=== PATIENT | male | born 1950 | race Caucasian/White ===

== ENCOUNTER 2025-07-07 08:39 | Inpatient (IN) | payer MEDICARE, MEDICAID ==
[~2025-07-07] VITALS: Ht 175.3 cm; Wt 82.5 kg
--- NOTE | 2025-07-07 10:27 | ED.PDOC ---
History of Present Illness HPI Comments 75-year-old male, with a history of DM, HLD, HTN, and vertigo - on meclizine, is brought in by ambulance from [facility] for chief complaint of dizziness. Per EMS personnel report, patient has significant history of chronic dizziness for over the past 8 years and was brought to the ED under patient's insistence after running out his meclizine medication upon arrival to said aforementioned facility following recent H admission discharge, last night. Patient also expresses this disinterest in staying at SNF. No further pertinent history or events endorsed. Denial of any chest pain, shortness of breath, patient and her speech changes, facial droop, or further associated symptoms. Chief Complaint: Dizziness Time Seen by MD: 09:10 Reviewed Notes: Nurses Notes, Moth Exterminator Notes, Medications, Allergies Allergies: Coded Allergies: NO KNOWN ALLERGIES (Unverified , 07/07/25) Information Source: Patient, Emergency Med Personnel Mode of Arrival: EMS Severity: Moderate Timing: Hours Duration: Since onset Prehospital treatment: 12 Lead EKG, P[place]ure Past Medical History PAST MEDICAL HISTORY: DM, High Lipids, HTN Past Medical History (Other): Vertigo Surgical History: Denies all surgeries Family History Family History: Unknown Social History Smoker: Non-Smoker Alcohol: Denies ETOH Use Drugs: Denies Drug Use Lives In: Home All Other Systems: Reviewed and Negative (Comprehensive review of systems are otherwise negative unless stated in HPI) Physical Exam General Appearance: Moderate Distress HEENT: Normal ENT Inspection, Pharynx Normal, TMs Normal Neck: Full Range of Motion, Non-Tender, Normal, Normal Inspection Respiratory: Chest Non-Tender, Lungs Clear, No Accessory Muscle Use, No Respiratory Distress, Normal Breath Sounds Cardiovascular: No Edema, No JVD, No Murmur, No Gallop, Normal Peripheral Pulses, Regular Rate/Rhythm Breast Exam: Deferred Gastrointestinal: No Organomegaly, Non Tender, No Pulsatile Mass, Normal Bowel Sounds, Soft Genitalia: Deferred Pelvic: Deferred Rectal: Deferred Extremities: No calf tenderness, Normal capillary refill, Normal inspection, Normal range of motion, Non-tender, No pedal edema Musculoskeletal : Apperance: Normal Neurologic: Alert, 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 Was a procedure done?: No EKG EKG : Pulse Rate (adult): 84 [place]: Normal Cardiac Rhythm: NSR, PAC's Block: None Hypertrophy: None ST: Normal Differential Dx Considerations may include: Differential diagnoses considered include but are not limited to cardiac structural disease, arrhythmia, acute coronary syndrome, orthostasis, pulmonary embolism, dissection, seizure, basilar stroke, vertigo, other. X-Ray, Labs, Meds, VS Vital Signs Date Time Temp Pulse Resp B/P (MAP) Pulse Ox O2 Delivery O2 Flow Rate FiO2 07/07/25 10:27 84 07/07/25 08:46 84 07/07/25 08:45 98.8 80 17 160/99 97 98.8 Lab Test 07/07/25 10:43 Range/Units White Blood Count 8.1 4.4-10.8 10^3/uL Red Blood Count 4.54 4.5-5.90 10^6/uL Hemoglobin 14.2 13.5-17.5 g/dL Hematocrit 41.9 41.0-53.0 % Mean Corpuscular Volume 92.3 80.0-100.0 fL Mean Corpuscular Hemoglobin 31.3 28.0-32.0 pg Mean Corpuscular Hemoglobin Concent 33.9 32.0-36.0 g/dL Red Cell Distribution Width 14.3 11.8-14.3 % Platelet Count 296 140-450 10^3/uL Mean Platelet Volume 7.7 6.9-10.8 fL Neutrophils (%) (Auto) 65.4 37.0-80.0 % Lymphocytes (%) (Auto) 16.2 10.0-50.0 % Monocytes (%) (Auto) 16.5 H 0.0-12.0 % Eosinophils (%) (Auto) 0.9 0.0-7.0 % Basophils (%) (Auto) 1.0 0.0-2.0 % Neutrophils # (Auto) 5.3 1.6-8.6 10 ^3/uL Lymphocytes # (Auto) 1.3 0.4-5.4 10 ^3/uL Monocytes # (Auto) 1.3 0-1.3 10 ^3/uL Eosinophils # (Auto) 0.1 0-0.8 10 ^3/uL Basophils # (Auto) 0.1 0-0.2 10 ^3/uL Nucleated Red Blood Cells 0.0 % Sodium Level 132 L 136-145 mmol/L Potassium Level 4.3 3.5-5.1 mmol/L Chloride Level 94 L 98-107 mmol/L Carbon Dioxide Level 25 20-31 mmol/L Anion Gap 13 5-15 Blood Urea Nitrogen 8 L 9-23 mg/dL Creatinine 1.05 0.700-1.30 mg/dL Glomerular Filtration Rate Calc 73 >90 mL/min BUN/Creatinine Ratio 7.6 L 10.0-20.0 Serum Glucose 135 H 74-106 mg/dL Calcium Level 9.9 8.7-10.4 mg/dL Patient alert. Complaining of dizziness. Vitals stable. Answering questions. Explained to the patient. Continue monitoring. Possibly will need placement. Time of 1ST Reevaluation: 09:40 Reevaluation 1ST: Unchanged Patient Education/Counseling: Diagnosis, Treatment, Need For Follow Up Family Education/Counseling: No Family Present SEPSIS Sepsis Screen Date sepsis recognized/suspect: Jul 07, 2025 Time Sepsis recognized/suspect: 844 Recent Procedure: No On Antibiotic Therapy: No Respiratory Rate >20: No Heart Rate >90: No Temp<36 C (96.8 F) or >38.3 C: No SBP <90 or MAP <65 mmHG: No New Acute Mental Status Change: No Is the patient on CPAP, BIPAP,: No Physician Orders Electrocardigram (07/07/25 08:49) Vital Signs Date Time Temp Pulse Resp B/P (MAP) Pulse Ox O2 Delivery O2 Flow Rate FiO2 07/07/25 10:27 84 07/07/25 08:46 84 07/07/25 08:45 98.8 80 17 160/99 97 98.8 Laboratory Tests Test 07/07/25 10:43 White Blood Count 8.1 10^3/uL (4.4-10.8) Departure 1 Departure Time of Disposition: 12:18 Impression: Primary Impression: Uncontrolled diabetes mellitus Qualified Codes: E13.65 - Other specified diabetes mellitus with hyperglyce lilly Additional Impression: Generalized weakness Disposition: ADMITTED INPATIENT Admit to: Med Surg Condition: Guarded Critical Care Note Critical Care Time?: No Stability Stability form required: No Heart Score Heart Score: Heart Score Response (Comments) Value History N/A 0 EKG N/A 0 Age N/A 0 Risk Factors N/A 0 Troponin N/A 0 Total 0 I personally scribed for JAX VARGAS MD ([email or web address]) on 07/07/25 at 10:27. Electronically submitted by Iglesia Gallegos ([email or web address]). JAX VARGAS MD Jul 07, 2025 10:27
[2025-07-07 10:55] LABS: Hematocrit 41.9 % (41.0-53.0); Hemoglobin 14.2 g/dL (13.5-17.5); Mean Corpuscular Hemoglobin 31.3 pg (28.0-32.0); Mean Corpuscular Volume 92.3 fL (80.0-100.0); Nucleated Red Blood Cells % 0.0 %
[2025-07-07 11:08] LABS: Potassium 4.3 mmol/L (3.5-5.1)
[2025-07-07 11:09] LABS: Anion Gap 13 (5-15); Carbon Dioxide 25 mmol/L (20-31)
[2025-07-07 11:10] LABS: Calcium 9.9 mg/dL (8.7-10.4); Chloride 94 mmol/L (98-107); Sodium 132 mmol/L (136-145)
[2025-07-07 11:15] LABS: Glucose 135 mg/dL (74-106)
[2025-07-07 11:24] LABS: BUN/Creatinine Ratio 7.6 (10.0-20.0); Blood Urea Nitrogen 8 mg/dL (9-23)
[2025-07-07] MEDS: ACETAMINOPHEN 325 MG TAB PO ONE (12:47)
--- NOTE | 2025-07-07 12:48 | ECG ---
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
[2025-07-07 13:52] VITALS: PULSE 97; RESP 16; O2SAT 96
[2025-07-07 13:58] LABS: Urine Protein, UAD Negative (Negative)
[2025-07-07] MEDS ORDERED: MORPHINE SULFATE INJ 2 MG/ml SYRG IV PRN (15:45)
[2025-07-07] MEDS ORDERED: ONDANSETRON HCL 4 MG/2 ML VIAL IV PRN (15:45)
[2025-07-07] MEDS ORDERED: DEXTROSE (50%) 50ML SYRG IV PRN (15:45)
[2025-07-07 16:00] VITALS: PULSE 97; RESP 20; O2SAT 95
[2025-07-07 16:07] LABS: Alanine Aminotransferase 15.0 U/L (7-40); Alkaline Phosphatase 99.0 U/L (46-116)
[2025-07-07 16:08] LABS: Albumin 5.2 g/dL (3.2-4.8); Bilirubin, Direct 0.2 mg/dL (<0.3); Bilirubin, Total 0.6 mg/dL (0.2-1.0); Total Protein 8.7 g/dL (5.7-8.2)
[2025-07-07 16:12] LABS: Magnesium 2.1 mg/dL (1.6-2.6)
[2025-07-07 16:13] LABS: Triglycerides 315.0 mg/dL (< 150)
[2025-07-07 16:14] LABS: Cholesterol 193.0 mg/dL (< 200)
[2025-07-07 16:18] LABS: HDL Cholesterol 36.0 mg/dL (40-59)
[2025-07-07 16:47] LABS: INR 1.08 (0.9-1.15); Partial Thromboplastin Time 30.8 SEC (24.5-34.5); Prothrombin Time 11.4 sec (9.3-11.8)
--- NOTE | 2025-07-07 16:47 | DVH ---
CLINICAL HISTORY: Presyncope, with mechanical fall and head trauma TECHNIQUE: Helical scanning was performed of the head from the skull base to the vertex. Multiplanar reconstructions were performed. This exam was performed according to our departmental dose optimizat ion program. Up-to-date CT equipment and radiation dose reduction techniques are utilized as appropri ate. CTDI 55 DLP 971 COMPARISON: Small vessel ischemic change. FINDINGS: There is no evidence for acute intracranial hemorrhage, acute ischemic changes, mass, mass effect, or extra-axial fluid collection. There is no hydrocephalus or midline shift. There is no effacement of the cerebral sulci and basal subarachnoid cisterns. The woodall-white matter differentiation is well alondra ntained. Graph there is mild brain volume loss and chronic The imaged paranasal sinuses are clear. IMPRESSION: NO ACUTE INTRACRANIAL ABNORMALITY SEEN.
--- NOTE | 2025-07-07 16:52 | DVH ---
CLINICAL HISTORY: Presyncope TECHNIQUE: Lewis-scale, Color and Duplex Doppler imaging of the bilateral carotid systems was performe d. COMPARISON: None Findings: Right Carotid system: There is plaque present in the right carotid system. Left Carotid system: There is plaque present in the left carotid system. The following flow velocities were obtained (cm/sec). Right Carotid System: ICA PSV: 95 cm/sec ICA PDV: 70 cm/sec ICA/CCA Ratio: 1 Left Carotid System: ICA PSV: 128 cm/sec ICA PDV: 26 cm/sec ICA/CCA Ratio: 1.3 The right and left common carotid and external carotid arteries are patent. There is antegrade flow i n both vertebral arteries and external carotid arteries. IMPRESSION: LESS THAN 50% RIGHT ICA NARROWING. 50-69% LEFT ICA NARROWING. Estimation of carotid stenosis is based on velocity parameters that correlate the residual internal c arotid diameter with that of the more distal vessel in accordance with the [place] Symptomatic Carotid Endarterectomy Trial (NASCET).
--- NOTE | 2025-07-07 16:55 | DVH ---
Exam: CT CT AB PEL WO CON-NO ORAL OR IV History: H/o bowel obstruction and r/o abd pain Comparison Study: None TECHNIQUE: Multidetector CT of the abdomen AND PELVIS without IV contrast. Axial, coronal and sagitta l multiplanar reformats were obtained from the axial data set by the technologist. Radiation Dose Information: CT Dose: CTDI volume is 15.99 mGy. Dose-length product is 809.89 mGy*cm FINDINGS: Bibasilar atelectasis. Partially visualized heart is normal in size. Small pericardial effusion. Calcified granuloma within the liver spleen. Otherwise, liver, spleen, pancreas and adrenal glands u nremarkable. Cholelithiasis without evidence of acute cholecystitis. 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 No [place] nephrosis or obstructing calculus bilaterally. Mild to moderate nonspecific bilateral perinephr ic fat stranding. Urinary bladder is unremarkable. Prostate measures 3.3 x 4.4 by 3.3 cm. Stomach is unremarkable. Small bowel loops unremarkable. Appendix is unremarkable. Descending colon a nd Sigmoid diverticulosis without diverticulitis. Distal rectal wall thickening which may be from cesilia dequate distention. No evidence of intraperitoneal free air or free fluid. Mild mesenteric fat stranding of the left mida bdomen. No evidence of aortic aneurysm. Heavy atherosclerotic calcification of the aorta and bilateral iliacs . Subcentimeter retroperitoneal nodes. Small fat containing umbilical hernia. Small fat containing bilateral inguinal hernias. Soft tissues unremarkable. No evidence of acute osseous abnormalities. Demineralization with slight increase scler osis of bilateral femoral heads and greater trochanters. Sclerotic focus of the right pelvic bone whi ch may represent a small bone island. IMPRESSION: No evidence of small-bowel obstruction. Colonic diverticulosis without diverticulitis. Distal rectal small wall thickening be from inadequate distention. [id number] nonspecific bilateral perinephric fat stranding. Infectious process can not be comp letely excluded. Additional findings as above.
[2025-07-07] MEDS: InsuLIN REG 1unit/0.01ml Soln (100units/ml) SC SCH (17:42)
[2025-07-07] MEDS: ACCU-CHEK COMFORT CURVE STRIP VI SCH (17:42)
--- NOTE | 2025-07-07 19:02 | DVHHPRES ---
History of Present Illness Resident Creating Document: DEE NAVARRO RESIDENT History of Present Illness This is a 75-year-old male with past medical history of hypertension, hyperlipidemia, GERD presenting to the hospital with persistent dizziness and difficulty walking. He reports these symptoms have been ongoing for very long time. Patient recently discharged from [facility] a few days ago after 2 months stay. Following discharge, he briefly stayed in a motel and then spent 1 day [facility] before came to the hospital due to current symptoms worsening dizziness and inability to walk. He concern about falling and injuring himself and recent fall month ago. Patient noted, prior to his recent hospitalization, he was able to walk but still experienced dizziness and use walker during ambulation. In addition to his primary complain, patient reports having a headache for which he has been taking Tylenol. Denies any e nausea, vomiting, diarrhea, cough, chest pain, leg swelling, SOB or any other pain. Patient also states that he was previously taking meclizine for dizziness but currently does not have any. He mentions seeing a security officer Dr. González sam in [place], [place], a couple of years ago and undergoing stress test and angiogram about 3 years ago. However he is unsure about the result but recalls taking medication for a while afterwards. Past medical history: HLD, HTN, GERD Surgical history: Angiogram few years ago Social history living situation-lives in [place], his girlfriend name Cassidy, no living family members Denies any EtOH, illicit drug use. PCP: Not selected Review of Systems Constitutional: Yes: Weakness, Malaise; No: Fever, Chills, Sweats, Other Eyes: No: Pain, Vision change, Conjunctivae inflammation, Eyelid inflammation, Other, Redness ENT: No: Ear pain, Ear discharge, Nose pain, Nose discharge, Nose congestion, Mouth pain, Mouth swelling, Throat pain, Throat swelling, Other Cardiovascular: No: Chest Pain, Palpitations, Orthopnea, Paroxysmal Noc. Dyspnea, Edema, Lt Headedness, Other Gastrointestinal: No: Nausea, Vomiting, Abdominal Pain, Diarrhea, Constipation, Melena, Hematochezia, Other Genitourinary: No Dysuria, No Frequency, No Incontinence, No Hematuria, No Retention, No Other Musculoskeletal: other (Gait instability), back pain Neurological: Other (Dizziness, vertigo) Allergies: Coded Allergies: NO KNOWN ALLERGIES (Unverified , 07/07/25) Medications Current Medications Medications Dose Ordered Sig/Lonnie Route Start Time Stop Time Status Last Admin Dose Admin Acetaminophen 650 mg Q6HP PRN PO 07/07/25 15:45 Ondansetron HCl 4 mg Q4HP PRN IV 07/07/25 15:45 Morphine Sulfate 2 mg Q4HPRN PRN IV 07/07/25 15:45 Enoxaparin Sodium 40 mg DAILY SC 07/08/25 10:00 Diagnostic Test (Pha) 1 strip ACHS 07/07/25 17:00 07/07/25 17:42 1 STRIP Insulin Human Regular ACHS SC 07/07/25 17:00 Dextrose 50 ml UD PRN IV 07/07/25 15:45 Exam Vital Signs Vital Signs Date Time Temp Pulse Resp B/P (MAP) Pulse Ox O2 Delivery O2 Flow Rate FiO2 07/07/25 16:00 97 20 95 Room Air* 0 21 07/07/25 16:00 97.9 152/89 (110) 97.9 General Appearance: Alert, Oriented X3, Cooperative, mild distress HEENT: Atraumatic, PERRLA, EOMI Respiratory: Clear to auscultation, Normal air movement Cardiovascular: Regular rate, Normal S1, Normal S2 Abdominal: Normal bowel sounds, Soft, No tenderness, No hepatospenomegaly Extremities: No clubbing, No cyanosis, No edema, Normal pulses Skin: No breakdown, No significant lesion Neuro: Normal speech, Normal tone, Other (Gait instability) Labs/Xrays Labs Test 07/07/25 17:20 07/07/25 16:07 07/07/25 16:01 07/07/25 10:43 Range/Units POC Glucose 98 70-106 mg/dl Prothrombin Time 11.4 9.3-11.8 sec Prothrombin Time INR 1.08 0.9-1.15 Activated Partial Thromboplast Time 30.8 24.5-34.5 SEC Troponin I High Sensitivity 14 </=54 ng/L Lactic Acid Level 1.3 0.4-2.0 mmol/L White Blood Count 8.1 4.4-10.8 10^3/uL Red Blood Count 4.54 4.5-5.90 10^6/uL Hemoglobin 14.2 13.5-17.5 g/dL Hematocrit 41.9 41.0-53.0 % Mean Corpuscular Volume 92.3 80.0-100.0 fL Mean Corpuscular Hemoglobin 31.3 28.0-32.0 pg Mean Corpuscular Hemoglobin Concent 33.9 32.0-36.0 g/dL Red Cell Distribution Width 14.3 11.8-14.3 % Platelet Count 296 140-450 10^3/uL Mean Platelet Volume 7.7 6.9-10.8 fL Neutrophils (%) (Auto) 65.4 37.0-80.0 % Lymphocytes (%) (Auto) 16.2 10.0-50.0 % Monocytes (%) (Auto) 16.5 H 0.0-12.0 % Eosinophils (%) (Auto) 0.9 0.0-7.0 % Basophils (%) (Auto) 1.0 0.0-2.0 % Neutrophils # (Auto) 5.3 1.6-8.6 10 ^3/uL Lymphocytes # (Auto) 1.3 0.4-5.4 10 ^3/uL Monocytes # (Auto) 1.3 0-1.3 10 ^3/uL Eosinophils # (Auto) 0.1 0-0.8 10 ^3/uL Basophils # (Auto) 0.1 0-0.2 10 ^3/uL Nucleated Red Blood Cells 0.0 % Sodium Level 132 L 136-145 mmol/L Potassium Level 4.3 3.5-5.1 mmol/L Chloride Level 94 L 98-107 mmol/L Carbon Dioxide Level 25 20-31 mmol/L Anion Gap 13 5-15 Blood Urea Nitrogen 8 L 9-23 mg/dL Creatinine 1.05 0.700-1.30 mg/dL Glomerular Filtration Rate Calc 73 >90 mL/min BUN/Creatinine Ratio 7.6 L 10.0-20.0 Serum Glucose 135 H 74-106 mg/dL Hemoglobin A1c 6.9 H <5.7 % A1C Calcium Level 9.9 8.7-10.4 mg/dL Phosphorus Level 3.4 2.4-5.1 mg/dL Magnesium Level 2.1 1.6-2.6 mg/dL Total Bilirubin 0.6 0.2-1.0 mg/dL Direct Bilirubin 0.2 <0.3 mg/dL Aspartate Amino Transferase (AST) 25 13-40 U/L Alanine Aminotransferase (ALT) 15 7-40 U/L Alkaline Phosphatase 99 46-116 U/L Total Protein 8.7 H 5.7-8.2 g/dL Albumin 5.2 H 3.2-4.8 g/dL Triglycerides Level 315 H < 150 mg/dL Cholesterol Level 193 < 200 mg/dL LDL Cholesterol 118 H < 100 mg/dL HDL Cholesterol 36 L 40-59 mg/dL Vitamin B12 Level 338 211-911 pg/mL Vitamin D 25-Hydroxy 18.8 L 30.0-100 ng/mL Thyroid Stimulating Hormone (TSH) 1.44 0.55-4.78 uIU/mL Test 07/07/25 10:07 Range/Units Urine Color Light-yellow Yellow Urine Clarity Clear Clear Urine pH 7.5 5.0-9.0 Urine Specific [place] 1.013 1.001-1.035 Urine Protein Negative Negative Urine Ketones Negative Negative Urine Blood Negative Negative /uL Urine Nitrite Negative Negative Urine Bilirubin Negative Negative Urine Urobilinogen Normal Negative mg/dL Urine Leukocyte Esterase Negative Negative /uL Urine RBC 1 0 - 3 /hpf Urine Microscopic WBC < 1 0-3 /HPF Urine Squamous Epithelial Cells Few <5 /hpf Urine Bacteria None seen None Seen /hpf Urine Glucose Normal Normal mg/dL SEPSIS Sepsis Screen Date sepsis recognized/suspect: Jul 07, 2025 Time Sepsis recognized/suspect: 1600 Recent Procedure: No On Antibiotic Therapy: No Respiratory Rate >20: No Heart Rate >90: No Temp<36 C (96.8 F) or >38.3 C: No SBP <90 or MAP <65 mmHG: No New Acute Mental Status Change: No Is the patient on CPAP, BIPAP,: No Physician Orders Admit (07/07/25 15:35) Code Status (07/07/25 15:35) Vital Signs .PER UNIT PROTOCOL (07/07/25 15:35) Review Orders With Adm. (07/07/25 15:35) Consistent Carb(Ccho)Diabetes (07/07/25 Dinner) Acetaminophen Tablet (Tylenol Tablet) (07/07/25 15:45) Notify Md Of Changes From Base (07/07/25 15:35) Advance Directive (07/07/25 15:35) Chest Two Views Routine (07/08/25 04:00) Echo 2d Mode Cardiac Dop (07/07/25 15:35) Patient Condition (07/07/25 15:35) Allergies (07/07/25 15:35) Ondansetron Hcl (Zofran) (07/07/25 15:45) Morphine Sulfate Injection (07/07/25 15:45) Enoxaparin Sodium (Lovenox) (07/08/25 10:00) Oxygen By Nasal Cannula (07/07/25 15:35) Stat Ekg For Chest Pain (07/07/25 15:35) Notify Md Of Changes From Base (07/07/25 15:35) Cooking Teacher For 24 Hours (07/07/25 15:35) Emergency Dysrhythmia Protocol (07/07/25 15:35) Rhythm Strips Once Every Shift (07/07/25 15:35) Head Without Contrast (07/07/25 15:35) Carotid Duplx W Color Dop (07/07/25 15:35) Glucose Blood (Accu-Chek Comfort Curve T (07/07/25 17:00) Insulin R (Human) (Insulin R) (07/07/25 17:00) Dextrose 50% Syringe (07/07/25 15:45) Drug Screen (07/07/25 15:41) Electrocardigram (07/07/25 15:41) Complete Blood Count (07/08/25 04:00) Basic Metabolic Panel (07/08/25 04:00) Ct Ab Pel Wo Con-No Oral Or Iv (07/07/25 15:57) Vital Signs Date Time Temp Pulse Resp B/P (MAP) Pulse Ox O2 Delivery O2 Flow Rate FiO2 07/07/25 16:00 97 20 95 Room Air* 0 21 07/07/25 16:00 97.9 89 20 152/89 (110) 95 97.9 07/07/25 13:52 97 16 96 Room Air* 0 21 07/07/25 13:52 98.2 97 16 123/69 (87) 96 98.2 Laboratory Tests Test 07/07/25 10:43 07/07/25 16:01 White Blood Count 8.1 10^3/uL (4.4-10.8) Lactic Acid Level 1.3 mmol/L (0.4-2.0) Medications Medications Dose Ordered Sig/Lonnie Route Start Time Stop Time Status Last Admin Dose Admin Acetaminophen 650 mg ONCE ONCE PO 07/07/25 11:15 07/07/25 11:16 DC 07/07/25 12:47 650 MG Diagnostic Test (Pha) 1 strip ACHS 07/07/25 17:00 07/07/25 17:42 1 STRIP Assessment/Plan Assessment/Plan Presyncope Rule out CVA Dizziness and gait instability Generalized weakness CT head- no acute intracranial abnormality. Carotid Doppler shows < 50% right ICA narrowing and 50-69% left ICA narrowing. EKG: Atrial premature complex, QTC 471 Fall precaution Orthostatic vital negative (Lyin/ 77, sittin, /82 standing 137/90) Encouraged oral fluid intak Hyperlipidemia TG 315, cholesterol 193, LDL 118, LDL 36 atorvastatin Type 2 diabetes mellitus hemoglobin A1c 6.9 sliding scale CHO consistent diet monitor blood sugar Hyponatremia serum sodium level 132, on admission BMP VITAMIN-d DEFICIENCY vitamin-D level 18.8 vitamin-D 18088 units p.o. Q week Diverticulosis Rectal wall thickening CT abdomen shows diverticulosis without diverticulitis and distal rectal small wall thickening. outpatient GI follow-up Pericardial effusion CT abdomen and pelvis shows small pericardial effusion monitor Cholelithiasis without evidence of acute cholecystitis KEVIN due to vasomotor nephropathy creatinine 1.05, unknown baseline, EGFR 73 encouraged oral fluid intake Carbohydrate consistent diet GI prophylaxis pantoprazole DVT prophylaxis Lovenox Goals of care discussion. More than 29 minute spent with patient. Full code status. Case discussed with Dr. Mcnamara. Plan discussed with: Patient, Other (Nurse) My Orders Orders - DEE NAVARRO Procedure Category Date Status Time Ct Ab Pel Wo Con-No CT 07/07/25 Resulted Oral Or Iv 15:57 Date of Service: Jul 07, 2025 Billing Provider: KEVEN MCNAMARA MD Common Visit Codes: 95757-JOAHTDU INP/OBS CARE (HIGH) Secondary Visit Codes: 41708-EWYLJVOI CARE PLAN 30 MINUTES DEE NAVARRO Jul 07, 2025 19:02 BIENVENIDO CONKLIN Jul 13, 2025 11:08 KEVEN MCNAMARA MD Jul 14, 2025 19:27
[2025-07-07 21:02] VITALS: BP 135/83; PULSE 78; RESP 18; TEMP 98; O2SAT 95; O2SAT 98
[2025-07-07 21:31] VITALS: BP 135/83; PULSE 78; RESP 17; TEMP 98; O2SAT 95
[2025-07-07] MEDS: ATORVASTATIN 20 MG TAB PO ONE (23:09)
[2025-07-07] MEDS: ACETAMINOPHEN 325 MG TAB PO PRN (23:09)
[2025-07-08] VITALS (9 sets, daily range): BP systolic 114–140; BP diastolic 62–93; PULSE 62–80; RESP 16–18; TEMP 98–98.6; O2SAT 94–98
[2025-07-08] MEDS: PANTOPRAZOLE 40 MG TAB PO SCH (05:56)
[2025-07-08] MEDS: MECLIZINE HCL 25 MG TAB PO ONE ×2 (05:56→14:59)
--- NOTE | 2025-07-08 06:03 | DVH ---
CHEST RADIOGRAPH Indication: Presyncope Technique: 1 view Comparison: Previous studies CT abdomen/pelvis FINDINGS: Lines and Tubes: External leads. Lungs/Pleura: Low lung volumes with basilar opacities most consistent with atelectasis. No evidence of acute consolidation or pleural abnormality Cardiomediastinum: Normal heart size. Right paratracheal calcification. Other: No acute osseous abnormality. IMPRESSION: 1. No acute cardiopulmonary abnormality.
[2025-07-08 07:20] LABS: Anion Gap 9 (5-15); Carbon Dioxide 25 mmol/L (20-31); Chloride 98 mmol/L (98-107); Potassium 4.0 mmol/L (3.5-5.1); Sodium 132 mmol/L (136-145)
[2025-07-08 07:21] LABS: Calcium 9.1 mg/dL (8.7-10.4)
[2025-07-08 07:26] LABS: BUN/Creatinine Ratio 11.7 (10.0-20.0); Blood Urea Nitrogen 12 mg/dL (9-23)
[2025-07-08 07:29] LABS: Hematocrit 35.3 % (41.0-53.0); Hemoglobin 12.7 g/dL (13.5-17.5); Mean Corpuscular Hemoglobin 32.4 pg (28.0-32.0); Mean Corpuscular Volume 90.5 fL (80.0-100.0)
[2025-07-08 07:30] LABS: Glucose 127 mg/dL (74-106)
[2025-07-08 08:31] LABS: RBC Morphology Normal; Total Cells Counted 100.0 (100)
[2025-07-08] MEDS: ENOXAPARIN SOD 40 MG/0.4 ML SYRINGE SC SCH (09:16)
--- NOTE | 2025-07-08 09:48 | DVHPNRES ---
Progress Note Date Seen: Jul 08, 2025 Resident Creating Document: DEE NAVARRO RESIDENT Medical Necessity Reason Pt with a Central, PICC or Fol: No Subjective Review of Systems This is a 75-year-old male with past medical history of hypertension, hyperlipidemia, GERD presenting to the hospital with persistent dizziness and difficulty walking. He reports these symptoms have been ongoing for very long time. Patient recently discharged from [facility] a few days ago after 2 months stay. Following discharge, he briefly stayed in a motel and then spent 1 day [facility] before came to the hospital due to current symptoms worsening dizziness and inability to walk. He concern about falling and injuring himself and recent fall month ago. Patient noted, prior to his recent hospitalization, he was able to walk but still experienced dizziness and use walker during ambulation. In addition to his primary complain, patient reports having a headache for which he has been taking Tylenol. Denies any e nausea, vomiting, diarrhea, cough, chest pain, leg swelling, SOB or any other pain. Patient also states that he was previously taking meclizine for dizziness but currently does not have any. 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 González sam in [place], [place], a couple of years ago and undergoing stress test and angiogram about 3 years ago. However he is unsure about the result but recalls taking medication for a while afterwards. Past medical history: HLD, HTN, GERD Surgical history: Angiogram few years ago Social history living situation-lives in [place], his girlfriend name Cassidy, no living family members Denies any EtOH, illicit drug use. PCP: González Monique MD Patient seen and evaluated in bedside today. Currently denies any acute symptoms. Echo pending. No acute event overnight. Called girlfriend Cassidy ([phone]) but unable to reach. Patient wants to go back "[place]" where he lives, when medically stable for discharge. Objective vital signs Vital Sign Date Time Temp Pulse Resp B/P (MAP) Pulse Ox O2 Delivery O2 Flow Rate FiO2 07/08/25 06:46 98.2 80 18 122/80 (94) 97 98.2 07/07/25 21:02 Room Air* 0 21 Total Intake and Output 07/07/25 07/07/25 07/08/25 15:00 23:00 07:00 Intake Total 150 ml Balance 150 ml medications Current Medications Medications Dose Ordered Sig/Lonnie Route Start Time Stop Time Status Last Admin Dose Admin Acetaminophen 650 mg Q6HP PRN PO 07/07/25 15:45 07/07/25 23:09 650 MG Ondansetron HCl 4 mg Q4HP PRN IV 07/07/25 15:45 Morphine Sulfate 2 mg Q4HPRN PRN IV 07/07/25 15:45 Enoxaparin Sodium 40 mg DAILY SC 07/08/25 10:00 Diagnostic Test (Pha) 1 strip ACHS 07/07/25 17:00 07/08/25 05:57 1 STRIP Insulin Human Regular ACHS SC 07/07/25 17:00 07/07/25 22:23 2 UNITS Dextrose 50 ml UD PRN IV 07/07/25 15:45 Ergocalciferol 50,000 unit Q7D PO 07/07/25 22:30 Pantoprazole Sodium 40 mg DAILY@0600 PO 07/08/25 06:00 07/08/25 05:56 40 MG Atorvastatin Calcium 20 mg HS PO 07/08/25 22:00 Examination General Appearance: Alert, Oriented X3, Cooperative, mild distress HEENT: Atraumatic, PERRLA, EOMI Respiratory: Clear to auscultation, Normal air movement Cardiovascular: Regular rate, Normal S1, Normal S2 Abdominal: Normal bowel sounds, Soft, No tenderness, No hepatospenomegaly Extremities: No clubbing, No cyanosis, No edema, Normal pulses Skin: No breakdown, No significant lesion Neuro: Normal speech, Normal tone, Other (Gait instability) laboratory and microbiology Laboratory Tests 07/08/25 06:45 Test 07/08/25 06:45 Range/Units Serum Glucose 127 H 74-106 mg/dL Problem List/Assessment/Plan Problem List/Assessment/Plan Presyncope Ruled out CVA Dizziness and gait instability Generalized weakness CT head- no acute intracranial abnormality. Carotid Doppler shows < 50% right ICA narrowing and 50-69% left ICA narrowing. EKG: Atrial premature complex, QTC 471 Trop 14 Fall precaution Orthostatic vital negative (Lyin/ 77, sittin, /82 standing 137/90) Encouraged oral fluid intak Hyperlipidemia TG 315, cholesterol 193, LDL 118, LDL 36 atorvastatin Type 2 diabetes mellitus hemoglobin A1c 6.9 Insulin sliding scale CHO consistent diet monitor blood sugar Hyponatremia serum sodium level 132, on admission BMP VITAMIN-d DEFICIENCY vitamin-D level 18.8 vitamin-D 77666 units p.o. Q week Diverticulosis Rectal wall thickening CT abdomen shows diverticulosis without diverticulitis and distal rectal small wall thickening. outpatient GI follow-up Normocytic normochromic anemia Hemoglobin level 12.6, HCT 35.3 No signs symptoms of active bleeding Pericardial effusion CT abdomen and pelvis shows small pericardial effusion monitor Cholelithiasis without evidence of acute cholecystitis KEVIN due to vasomotor nephropathy creatinine 1.05, unknown baseline, EGFR 73 encouraged oral fluid intake Carbohydrate consistent diet GI prophylaxis pantoprazole DVT prophylaxis Lovenox Goals of care discussion. More than 19minute spent with patient. Full code status. Case discussed with Dr. Mcnamara. Plan discussed with: Patient, Other (Nurse) My Orders My Orders Orders - DEE NAVARRO Procedure Category Date Status Time Ct Ab Pel Wo Con-No CT 07/07/25 Resulted Oral Or Iv 15:57 Ergocalciferol PHA 07/07/25 In Process (Vitamin D 50,000 22:30 Pantoprazole Tablet PHA 07/08/25 In Process (Protonix Tablet) 06:00 Atorvastatin (Lipitor) PHA 07/08/25 In Process 22:00 Date of Service: Jul 08, 2025 Billing Provider: KEVEN MCNAMARA MD Common Visit Codes: [id number] INP/OBS CARE(HIGH) DEE NAVARRO Jul 08, 2025 09:48 BIENVENIDO CONKLIN Jul 13, 2025 11:09 KEVEN MCNAMARA MD Jul 14, 2025 19:27
[2025-07-08] MEDS: ATORVASTATIN 20 MG TAB PO SCH (21:45)
[2025-07-08] MEDS: MECLIZINE HCL 25 MG TAB PO SCH (21:45)
[2025-07-08] MEDS: ERGOCALCIFEROL 50,000 UNIT(1.25MG) CAP PO SCH (21:45)
[2025-07-09] VITALS (7 sets, daily range): BP systolic 120–137; BP diastolic 66–90; PULSE 56–83; RESP 16–18; TEMP 97.3–97.8; O2SAT 95–98
--- NOTE | 2025-07-09 00:41 | DVHSR ---
APPROVED REPORT EXAM: Two-dimensional and M-mode echocardiogram with Doppler and color Doppler. Blood Pressure: 122/80 mmHg INDICATION Presyncope RISK FACTORS Height: 69, Weight: 175 DIMENSIONS LVDd4.4 (3.8-5.7cm)LA (2D)4.4 (1.9-4.0cm)Aortic Root3.9 (2.0-3.7cm) LVDs3.0 (2.5-4.0cm)LA (MM) (1.9-4.0cm)Aortic Cusp Exc1.9 (1.5-2.0cm) EF (%) 61.0 (55-70%)Rt. Atrium (1.9-4.0cm)Asc. Aorta cm Mitral Valve MitralMitral Stenosis E wave0.72m/sMV Mean GR.mmHg A wave0.98m/sMV Peak GR.mmHg E/A ratio0.72D MVAcm2 DECEL [id number] 1/2 Timems Aortic Valve Aortic ValveAortic Stenosis V11.07m/Nellie Mean GR.5mmHg V21.60m/Nellie Peak GR.10mmHg LVOT Diameter2.0 (1.8-2.4cm)Doppler AVA2.10cm2 Pulmonic Valve V20.96m/s Tricuspid Valve TR Velocity2.43m/s [id number] Other Information Technically limited study due to body habitus and patient position. Conclusion LV EF IS 65% AORTIC LEAFLETS ARE CALCIFIED MITRAL ANNULAR CALCIFICATION SLIGHTLY DILATED LA NO EFFUSION
[2025-07-09 07:10] LABS: Chloride 100 mmol/L (98-107); Potassium 4.0 mmol/L (3.5-5.1)
[2025-07-09 07:11] LABS: Anion Gap 9 (5-15); Carbon Dioxide 25 mmol/L (20-31)
[2025-07-09 07:12] LABS: Calcium 9.2 mg/dL (8.7-10.4); Hematocrit 36.2 % (41.0-53.0); Hemoglobin 12.4 g/dL (13.5-17.5); Mean Corpuscular Hemoglobin 31.3 pg (28.0-32.0); Mean Corpuscular Volume 90.9 fL (80.0-100.0)
[2025-07-09 07:13] LABS: Sodium 134 mmol/L (136-145)
[2025-07-09 07:16] LABS: BUN/Creatinine Ratio 10.3 (10.0-20.0); Blood Urea Nitrogen 10 mg/dL (9-23)
[2025-07-09 07:18] LABS: Glucose 122 mg/dL (74-106)
[2025-07-09 07:53] LABS: Total Cells Counted 100.0 (100)
--- NOTE | 2025-07-09 14:58 | DVHDSRES ---
Discharge Summary Date of Admission Resident Creating Document: DEE NAVARRO RESIDENT Jul 07, 2025 at 15:35 Date of Discharge: Jul 09, 2025 Labs/Diagnostic Data: Laboratory Results Test 07/09/25 06:01 07/09/25 06:00 07/08/25 06:45 07/07/25 16:07 White Blood Count 5.3 10^3/uL (4.4-10.8) Red Blood Count 3.98 10^6/uL (4.5-5.90) Hemoglobin 12.4 g/dL (13.5-17.5) Hematocrit 36.2 % (41.0-53.0) Mean Corpuscular Volume 90.9 fL (80.0-100.0) Mean Corpuscular Hemoglobin 31.3 pg (28.0-32.0) Mean Corpuscular Hemoglobin Concent 34.4 g/dL (32.0-36.0) Red Cell Distribution Width 14.7 % (11.8-14.3) Platelet Count 248 10^3/uL (140-450) Mean Platelet Volume 8.0 fL (6.9-10.8) Neutrophils (%) (Auto) % (37.0-80.0) Lymphocytes (%) (Auto) % (10.0-50.0) Monocytes (%) (Auto) % (0.0-12.0) Basophils (%) (Auto) % (0.0-2.0) Neutrophils # (Auto) 10 ^3/uL (1.6-8.6) Lymphocytes # (Auto) 10 ^3/uL (0.4-5.4) Monocytes # (Auto) 10 ^3/uL (0-1.3) Differential Total Cells Counted 100.0 (100) Neutrophils % (Manual) 48 (37.0-80.0) Band Neutrophils % (Manual) 2 Lymphocytes % (Manual) 36 (10.0-50.0) Monocytes % (Manual) 7 (0-12) Eosinophils % (Manual) 6 (0-7) Basophils % (Manual) 0 (0.0-2.0) Metamyelocytes % (manual) 1 Myelocytes % (Manual) 0 Promyelocytes % (Manual) 0 Blast Cells % (Manual) 0 Reactive Lymphocytes 0 Platelet Estimate Adequate Sodium Level 134 mmol/L (136-145) Potassium Level 4.0 mmol/L (3.5-5.1) Chloride Level 100 mmol/L (98-107) Carbon Dioxide Level 25 mmol/L (20-31) Anion Gap 9 (5-15) Blood Urea Nitrogen 10 mg/dL (9-23) Creatinine 0.97 mg/dL (0.700-1.30) Glomerular Filtration Rate Calc 80 mL/min (>90) BUN/Creatinine Ratio 10.3 (10.0-20.0) Serum Glucose 122 mg/dL (74-106) Calcium Level 9.2 mg/dL (8.7-10.4) POC Glucose 137 mg/dl (70-106) Red Blood Cell Morphology Normal Prothrombin Time 11.4 sec (9.3-11.8) Prothrombin Time INR 1.08 (0.9-1.15) Activated Partial Thromboplast Time 30.8 SEC (24.5-34.5) Troponin I High Sensitivity 14 ng/L (</=54) Test 07/07/25 16:01 07/07/25 10:43 07/07/25 10:07 Lactic Acid Level 1.3 mmol/L (0.4-2.0) Eosinophils (%) (Auto) 0.9 % (0.0-7.0) Eosinophils # (Auto) 0.1 10 ^3/uL (0-0.8) Basophils # (Auto) 0.1 10 ^3/uL (0-0.2) Nucleated Red Blood Cells 0.0 % Hemoglobin A1c 6.9 % A1C (<5.7) Phosphorus Level 3.4 mg/dL (2.4-5.1) Magnesium Level 2.1 mg/dL (1.6-2.6) Total Bilirubin 0.6 mg/dL (0.2-1.0) Direct Bilirubin 0.2 mg/dL (<0.3) Aspartate Amino Transferase (AST) 25 U/L (13-40) Alanine Aminotransferase (ALT) 15 U/L (7-40) Alkaline Phosphatase 99 U/L (46-116) Total Protein 8.7 g/dL (5.7-8.2) Albumin 5.2 g/dL (3.2-4.8) Triglycerides Level 315 mg/dL (< 150) Cholesterol Level 193 mg/dL (< 200) LDL Cholesterol 118 mg/dL (< 100) HDL Cholesterol 36 mg/dL (40-59) Vitamin B12 Level 338 pg/mL (211-911) Vitamin D 25-Hydroxy 18.8 ng/mL (30.0-100) Thyroid Stimulating Hormone (TSH) 1.44 uIU/mL (0.55-4.78) Urine Color Light-yellow (Yellow) Urine Clarity Clear (Clear) Urine pH 7.5 (5.0-9.0) Urine Specific [place] 1.013 (1.001-1.035) Urine Protein Negative (Negative) Urine Ketones Negative (Negative) Urine Blood Negative /uL (Negative) Urine Nitrite Negative (Negative) Urine Bilirubin Negative (Negative) Urine Urobilinogen Normal mg/dL (Negative) Urine Leukocyte Esterase Negative /uL (Negative) Urine RBC 1 /hpf (0 - 3) Urine Microscopic WBC < 1 /HPF (0-3) Urine Squamous Epithelial Cells Few /hpf (<5) Urine Bacteria None seen /hpf (None Seen) Urine Glucose Normal mg/dL (Normal) Other Laboratory Tests 07/09/25 06:01 Brief Hx & Hospital Course: This is a 75-year-old male with past medical history of hypertension, hyperlipidemia, GERD presenting to the hospital with persistent dizziness and difficulty walking. He reports these symptoms have been ongoing for very long time. Patient recently discharged from [facility] a few days ago after 2 months stay. Following discharge, he briefly stayed in a motel and then spent 1 day [facility] [facility] before came to the hospital due to current symptoms worsening dizziness and inability to walk. He concern about falling and injuring himself and recent fall month ago. Patient noted, prior to his recent hospitalization, he was able to walk but still experienced dizziness and use walker during ambulation. In addition to his primary complain, patient reports having a headache for which he has been taking Tylenol. Denies any e nausea, vomiting, diarrhea, cough, chest pain, leg swelling, SOB or any other pain. Patient also states that he was previously taking meclizine for dizziness but currently does not have any. 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 González sam in [place], [place], a couple of years ago and undergoing stress test and angiogram about 3 years ago. However he is unsure about the result but recalls taking medication for a while afterwards. Past medical history: HLD, HTN, GERD Surgical history: Angiogram few years ago Social history living situation-lives in [place], his girlfriend name Cassidy, no living family members Denies any EtOH, illicit drug use. PCP: González Monique MD Hospital course: patient admitted due to presyncope associated with generalized weakness. CT head- no acute intracranial abnormality. Carotid Doppler shows < 50% right ICA narrowing and 50-69% left ICA narrowing, started aspirin and atorvastatin with his current medication. CT abdomen and pelvis shows colonic diverticulosis without diverticulitis, distal rectal small wall thickening, small fat containing umbilical hernia. X-ray chest shows no acute cardiopulmonary disease. patient treated conservatively and his symptoms significantly improved. during hospital stay, patient treated both acute and chronic medical conditions. Echocardiogram on 07/09/2025 shows left ventricular EF 65%, mitral annular calcification and slightly dilated left atrium. Patient currently denies any SOB, cough, headache, chest pain, abdominal pain, dysuria or any other acute distress. Patient is hemodynamically stable for discharge. The patient has received maximum benefits from inpatient treatment. Time was given to answer patient/ parents questions and concerns in Layman terms. patient verbalized understanding and agree with treatment and follow-up. Patient was recommended to return to the ED if she experiences any worsening symptoms such as, but not limited to current symptoms. Continue current home medication. follow-up with discharge Clinic within 2 weeks on Saturday morning and follow up with PCP and outpatient Cardiology within 4-6 weeks after discharge . Patient educated and advised to resume home medication. Physical examination Constitutional: No: Fever, Chills, Sweats, Weakness, Malaise Eyes: No: Pain, Vision change, Conjunctivae inflammation, Eyelid inflammation ENT: No: Ear pain, Ear discharge, Nose pain, Nose discharge, Nose congestion, Mouth pain, Mouth swelling, Throat pain, Throat swelling Respiratory: Shortness of breath; No: Cough, Dry, SOB with excertion, Wheezing, Hemoptysis, Pleuritic Pain, Sputum, Wheezing Cardiovascular: No: Chest Pain, Palpitations, Orthopnea, Paroxysmal Noc. Dyspnea, Edema, Lt Headedness Gastrointestinal: No: Nausea, Vomiting, Abdominal Pain, Diarrhea, Constipation, Melena, Hematochezia Genitourinary: No Dysuria, No Frequency, No Incontinence, No Hematuria, No Retention Musculoskeletal: No: other, neck pain, shoulder pain, arm pain, back pain, hand pain, leg pain, foot pain Skin: No: Rash, Lesions, Jaundice, Bruising Neurological: No: Weakness, Numbness, Incoordination, Change in speech, Confusion, Seizures Case discussed with patient, Dr. Mcnamara, nurse. Operations or Procedures ORDERING PHYSICIAN: BIENVENIDO CONKLIN RESIDENT PROCEDURE(s): CXR1 - CHEST XRAY 1 VIEW REASON: Presyncope ORDER NUMBER(s): [id number], ACCESSION NUMBER(s): [id number] CHEST RADIOGRAPH Indication: Presyncope Technique: 1 view Comparison: Previous studies CT abdomen/pelvis FINDINGS: Lines and Tubes: External leads. Lungs/Pleura: Low lung volumes with basilar opacities most consistent with atelectasis. No evidence of acute consolidation or pleural abnormality Cardiomediastinum: Normal heart size. Right paratracheal calcification. Other: No acute osseous abnormality. IMPRESSION: 1. No acute cardiopulmonary abnormality. ATED BY: CHATO WALLIS MD DICTATED DATE/TIME: 07/08/25 0600 ORDERING PHYSICIAN: DEE NAVARRO PROCEDURE(s): ABPL - CT AB PEL WO CON-NO ORAL OR IV REASON: H/o bowel obstruction and r/o abd pain ORDER NUMBER(s): [id number], ACCESSION NUMBER(s): [id number] Exam: CT CT AB PEL WO CON-NO ORAL OR IV History: H/o bowel obstruction and r/o abd pain Comparison Study: None TECHNIQUE: Multidetector CT of the abdomen AND PELVIS without IV contrast. Axial, coronal and sagittal multiplanar reformats were obtained from the axial data set by the technologist. Radiation Dose Information: CT Dose: CTDI volume is 15.99 mGy. Dose-length product is 809.89 mGy*cm FINDINGS: Bibasilar atelectasis. Partially visualized heart is normal in size. Small pericardial effusion. Calcified granuloma within the liver spleen. Otherwise, liver, spleen, pancreas and adrenal glands unremarkable. Cholelithiasis without evidence of acute cholecystitis. 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 No [place] nephrosis or obstructing calculus bilaterally. Mild to moderate nonspecific bilateral perinephric fat stranding. Urinary bladder is unremarkable. Prostate measures 3.3 x 4.4 by 3.3 cm. Stomach is unremarkable. Small bowel loops unremarkable. Appendix is unremarkable. Descending colon and Sigmoid diverticulosis without diverticulitis. Distal rectal wall thickening which may be from inadequate distention. No evidence of intraperitoneal free air or free fluid. Mild mesenteric fat stranding of the left midabdomen. No evidence of aortic aneurysm. Heavy atherosclerotic calcification of the aorta and bilateral iliacs. Subcentimeter retroperitoneal nodes. Small fat containing umbilical hernia. Small fat containing bilateral inguinal hernias. Soft tissues unremarkable. No evidence of acute osseous abnormalities. Demineralization with slight increase sclerosis of bilateral femoral heads and greater trochanters. Sclerotic focus of the right pelvic bone which may represent a small bone island. IMPRESSION: No evidence of small-bowel obstruction. Colonic diverticulosis without diverticulitis. Distal rectal small wall thickening be from inadequate distention. [id number] nonspecific bilateral perinephric fat stranding. Infectious process can not be completely excluded. Additional findings as above. ATED BY: STACY SOUZA DO DICTATED DATE/TIME: 07/07/25 6732 ORDERING PHYSICIAN: BIENVENIDO CONKLIN RESIDENT PROCEDURE(s): HWOCT - HEAD WITHOUT CONTRAST REASON: Presyncope, with mechanical fall and head trauma ORDER NUMBER(s): [id number], ACCESSION NUMBER(s): [id number] CLINICAL HISTORY: Presyncope, with mechanical fall and head trauma TECHNIQUE: Helical scanning was performed of the head from the skull base to the vertex. Multiplanar reconstructions were performed. This exam was performed according to our departmental dose optimization program. Up-to-date CT equipment and radiation dose reduction techniques are utilized as appropriate. CTDI 55 DLP 971 COMPARISON: Small vessel ischemic change. FINDINGS: There is no evidence for acute intracranial hemorrhage, acute ischemic changes, mass, mass effect, or extra-axial fluid collection. There is no hydrocephalus or midline shift. There is no effacement of the cerebral sulci and basal subarachnoid cisterns. The lewis-white matter differentiation is well maintained. Graph there is mild brain volume loss and chronic The imaged paranasal sinuses are clear. IMPRESSION: NO ACUTE INTRACRANIAL ABNORMALITY SEEN. ATED BY: THOMAS CLARK MD DICTATED DATE/TIME: 07/07/25 1645 ORDERING PHYSICIAN: BIENVENIDO CONKLIN RESIDENT PROCEDURE(s): CARCL - CAROTID DUPLX W COLOR DOP REASON: Presyncope ORDER NUMBER(s): [id number], ACCESSION NUMBER(s): [id number] CLINICAL HISTORY: Presyncope TECHNIQUE: Lewis-scale, Color and Duplex Doppler imaging of the bilateral carotid systems was performed. COMPARISON: None Findings: Right Carotid system: There is plaque present in the right carotid system. Left Carotid system: There is plaque present in the left carotid system. The following flow velocities were obtained (cm/sec). Right Carotid System: ICA PSV: 95 cm/sec ICA PDV: 70 cm/sec ICA/CCA Ratio: 1 Left Carotid System: ICA PSV: 128 cm/sec ICA PDV: 26 cm/sec ICA/CCA Ratio: 1.3 The right and left common carotid and external carotid arteries are patent. There is antegrade flow in both vertebral arteries and external carotid arteries. IMPRESSION: LESS THAN 50% RIGHT ICA NARROWING. 50-69% LEFT ICA NARROWING. Estimation of carotid stenosis is based on velocity parameters that correlate the residual internal carotid diameter with that of the more distal vessel in accordance with the [place] Symptomatic Carotid Endarterectomy Trial (NASCET). ATED BY: THOMAS CLARK MD DICTATED DATE/TIME: 07/07/25 1650 Condition at Discharge: Stable Final Diagnosis/Problems List Presyncope Ruled out CVA Questionable chronic mesenteric ischemia Non-significant bilateral carotid stenosis Hyperlipidemia Type 2 diabetes mellitus Hyponatremia VITAMIN-D DEFICIENCY Diverticulosis Normocytic normochromic anemia Pericardial effusion Cholelithiasis without evidence of acute cholecystitis KEVIN due to vasomotor nephropathy Discharge Disposition: Home Discharge Instruct/Medications Diet: Cardiac 2g Na,low cholest Diet comment: Continue mechanical soft diet Activity: No Restrictions, As Tolerated Follow Up/Referral: PCP Saturday morning outpatient clinic within 2 weeks after Cardiology follow-up outpatient within 4-6 weeks after discharge Scheduled Atorvastatin Calcium (Atorvastatin Calcium), 1 TAB PO HS Ergocalciferol (Vitamin D (Ergocalciferol), 50,000 UNIT PO QWEEKLY Scheduled PRN Acetaminophen (Tylenol), 650 MG PO Q6HPRN PRN Meclizine Hcl (Meclizine Hcl), 12.5 MG PO [id number] PRN Discharge Statement: "Patient was advised to return to the ER or call 911 if any headaches, dizziness, shortness of breath, chest pain, abdominal pain, bleeding, fevers, or worsening of medical condition. Patient was counseled about treatment plan, medications, possible side effects, patientverbalized understanding. All questions were answered to the best of my ability. This discharge took greater then 30 minutes in planning, reviewing documentation, counseling the patient, and discussing with other team members." ASSESSMENT ASSESSMENT Assessment Presyncope and generalized weakness Date of Service: Jul 09, 2025 Billing Provider: KEVEN MCNAMARA MD Common Visit Codes: [id number]/OBS DISCH DAY >30min DEE NAVARRO RESIDENT Jul 09, 2025 14:58 BIENVENIDO CONKLIN RESIDENT Jul 13, 2025 11:12 KEVEN MCNAMARA MD Jul 14, 2025 20:22
[2025-07-09] MEDS ORDERED: ATOR20TA50 PO (16:44)
[2025-07-09] MEDS ORDERED: ASPI-325 PO (16:44)
[2025-07-09] MEDS ORDERED: MECL-90 PO (16:44)
[2025-07-09] MEDS ORDERED: ERGO1CAP23 PO (16:44)
[2025-07-09] MEDS ORDERED: ACET-1882 PO (16:44)
[2025-07-10 01:00] VITALS: BP 148/71; PULSE 61; RESP 18; TEMP 97.2; O2SAT 98
[2025-07-10 08:00] VITALS: PULSE 59; RESP 14; O2SAT 94
[2025-07-10 09:00] VITALS: BP 143/78; PULSE 71; RESP 14; TEMP 97.6; O2SAT 97
[2025-07-10] MEDS: HYDROcodone-ACET 5/325MG TAB PO ONE (10:12)
[2025-07-10 12:00] VITALS: BP 143/78; PULSE 71; RESP 14; TEMP 97.6; O2SAT 97
[2025-07-10] MEDS ORDERED: MECL-90 PO (12:36)
[2025-07-10] MEDS ORDERED: ACE650RS PO (12:36)
[2025-07-10] MEDS ORDERED: ERGO500086 PO (12:36)
[2025-07-10] MEDS ORDERED: ATOR20TA50 PO (12:36)
[2025-07-10 12:47] VITALS: BP 147/72; PULSE 83; RESP 16; TEMP 97.7; O2SAT 95
--- NOTE | 2025-07-10 18:06 | DVHPNRES ---
Progress Note Date Seen: Jul 10, 2025 Resident Creating Document: JAE WEBSTER RESIDENT Medical Necessity Reason Pt with a Central, PICC or Fol: No Subjective Review of Systems This is a 75-year-old male with past medical history of hypertension, hyperlipidemia, GERD presenting to the hospital with persistent dizziness and difficulty walking. He reports these symptoms have been ongoing for very long time. Patient recently discharged from [facility] a few days ago after 2 months stay. Following discharge, he briefly stayed in a motel and then spent 1 day [facility] before came to the hospital due to current symptoms worsening dizziness and inability to walk. He concern about falling and injuring himself and recent fall month ago. Patient noted, prior to his recent hospitalization, he was able to walk but still experienced dizziness and use walker during ambulation. In addition to his primary complain, patient reports having a headache for which he has been taking Tylenol. Denies any e nausea, vomiting, diarrhea, cough, chest pain, leg swelling, SOB or any other pain. Patient also states that he was previously taking meclizine for dizziness but currently does not have any. He mentions seeing a deportation officer Dr. González sam in [place], [place], a couple of years ago and undergoing stress test and angiogram about 3 years ago. However he is unsure about the result but recalls taking medication for a while afterwards. Past medical history: HLD, HTN, GERD Surgical history: Angiogram few years ago Social history living situation-lives in [place], his girlfriend name Cassidy, no living family members Denies any EtOH, illicit drug use. PCP: González Monique MD Patient seen and evaluated in bedside today. He reports having tooth ache, he denies any other complaints today. Objective vital signs Vital Sign Date Time Temp Pulse Resp B/P (MAP) Pulse Ox O2 Delivery O2 Flow Rate FiO2 07/10/25 12:47 97.7 83 16 147/72 (97) 95 97.7 07/10/25 08:00 Room Air* 0 21 Total Intake and Output 07/09/25 07/09/25 07/10/25 15:00 23:00 07:00 Intake Total 1080 ml 500 ml Balance 1080 ml 500 ml Examination Examination General Appearance: Alert, Oriented X3, Cooperative, mild distress HEENT: Atraumatic, PERRLA, EOMI Respiratory: Clear to auscultation, Normal air movement Cardiovascular: Regular rate, Normal S1, Normal S2 Abdominal: Normal bowel sounds, Soft, No tenderness, No hepatospenomegaly Extremities: No clubbing, No cyanosis, No edema, Normal pulses Skin: No breakdown, No significant lesion Neuro: Normal speech, Normal tone, Other (Gait instability) laboratory and microbiology Laboratory Tests 07/09/25 06:01 Test 07/09/25 06:01 Range/Units Serum Glucose 122 H 74-106 mg/dL Microbiology Date/Time Source Procedure Growth Status 07/08/25 00:30 Nose MRSA Screen - Final Complete Problem List/Assessment/Plan Problem List/Assessment/Plan Presyncope Dizziness and gait instability Generalized weakness CT head- no acute intracranial abnormality. Carotid Doppler shows < 50% right ICA narrowing and 50-69% left ICA narrowing. EKG: Atrial premature complex, QTC 471 Trop 14 Fall precaution Orthostatic vital negative (Lyin/ 77, sittin, /82 standing 137/90) Encouraged oral fluid intak Hyperlipidemia TG 315, cholesterol 193, LDL 118, LDL 36 atorvastatin Type 2 diabetes mellitus hemoglobin A1c 6.9 Insulin sliding scale CHO consistent diet monitor blood sugar Hyponatremia serum sodium level 132, on admission BMP VITAMIN-d DEFICIENCY vitamin-D level 18.8 vitamin-D 46624 units p.o. Q week Diverticulosis Rectal wall thickening CT abdomen shows diverticulosis without diverticulitis and distal rectal small wall thickening. outpatient GI follow-up Normocytic normochromic anemia Hemoglobin level 12.6, HCT 35.3 No signs symptoms of active bleeding Pericardial effusion CT abdomen and pelvis shows small pericardial effusion monitor Cholelithiasis without evidence of acute cholecystitis KEVIN due to vasomotor nephropathy creatinine 1.05, unknown baseline, EGFR 73 encouraged oral fluid intake Carbohydrate consistent diet GI prophylaxis pantoprazole DVT prophylaxis Lovenox The patient has been discharged, awaiting transportation from [place]. He reports having tooth ache, which was managed with 1 time dose of [place]. Goals of care discussion. More than 19minute spent with patient. Full code status. Case discussed with Dr. Mcnamara. Plan discussed with: Patient, Other (Nurse) Plan discussed with: Patient, Other (RN) My Orders My Orders Orders - JAE WEBSTER Procedure Category Date Status Time * Production Sound Mixer CONS 07/10/25 Transmitted Consult Date of Service: Jul 10, 2025 Billing Provider: ALE NOLAN MD Common Visit Codes: [id number] INP/OBS CARE(HIGH) JAE WEBSTER RESIDENT Jul 10, 2025 18:06 ALE NOLAN MD Jul 11, 2025 20:48
== END 2025-07-10 14:55 | disposition home or self-care (01) | DRG 149 ==
LOC: EDBD 08:39 → ER 08:39 → OVERFLOW 15:35 → TELE-WESTW 21:00
PROVIDERS: ADMIT Student in an Organized Health Care Education/Training Program; ATTEND Student in an Organized Health Care Education/Training Program
DX: H81.10 Benign paroxysmal vertigo, unspecified ear (principal); N17.0 Acute kidney failure with tubular necrosis; E87.1 Hypo-osmolality and hyponatremia; I31.39 Other pericardial effusion (noninflammatory); D64.9 Anemia, unspecified; I10 Essential (primary) hypertension; E78.5 Hyperlipidemia, unspecified; K21.9 Gastro-esophageal reflux disease without esophagitis; E11.9 Type 2 diabetes mellitus without complications; E55.9 Vitamin D deficiency, unspecified; K57.30 Diverticulosis of large intestine without perforation or abscess without bleeding; K80.20 Calculus of gallbladder without cholecystitis without obstruction; Z79.4 Long term (current) use of insulin; R26.89 Other abnormalities of gait and mobility; I65.23 Occlusion and stenosis of bilateral carotid arteries; Z79.82 Long term (current) use of aspirin
CPT/HCPCS: 36415; 70450; 71045; 74176; 80048; 80061; 80076; 81001; 82306; 82607; 82962; 83036; 83605; 83735; 84100; 84443; 84484; 85007; 85025; 85027; 85610; 85730; 87081; 93005; 93306; 93886; 96372; G0378; J1815

== ENCOUNTER 2025-09-11 14:31 | Inpatient (IN) | payer MEDICARE, MEDICAID ==
[~2025-09-11] VITALS: Ht 175.3 cm; Wt 80.1 kg
[~2025-09-11 14:31] MED LIST: ACE650RS PO; ATOR20TA50 PO; ERGO500086 PO; MECL-90 PO
--- NOTE | 2025-09-11 16:34 | ED.PDOC ---
HPI Comments 75 y.o male presents to the ED for a chief complaint of left sided chest pain radiating to his left arm associated with nausea, dizziness and acid reflux x 2- 3 days. Patient reports he is currently residing in a care facility in which he does not know the name of. He has requested to get his medication for GERD and Vertigo but states he has not been given any of his medications for the past 2 days. He is unable to eat given acid reflux x 3 days. He mentions previous chest pain and has a pacemaker however states this type of pain is different and more persistent. He denies any nausea, vomiting, diarrhea, fever, chills. Chief Complaint: Chest Pain Time Seen by MD: 16:20 Reviewed Notes: Nurses Notes, Medications, Allergies Allergies: Coded Allergies: NO KNOWN ALLERGIES (Unverified , 07/07/25) Home Meds Active Scripts Meclizine Hcl (Meclizine Hcl) 25 Mg Tab, 12.5 MG PO [id number] PRN for 30 Days, #30 TAB Prov:CHAITANYA BLOOM RESIDENT 07/10/25 Ergocalciferol (Vitamin D (Ergocalciferol) 50,000 Unit Cap, 07020 UNIT PO QWEEKLY for 60 Days, #10 CAP Prov:CHAITANYA BLOOM 07/10/25 Atorvastatin Calcium (ATORVASTATIN CALCIUM) 20 Mg Tab, 1 TAB PO HS for 30 Days, #30 TAB 5 Refills Prov:CHAITANYA BLOOM RESIDENT 07/10/25 Acetaminophen (Tylenol) 650 Mg Rc, 650 MG PO Q6HPRN PRN for 15 Days, #120 TAB Prov:CHAITANYA BLOOM RESIDENT 07/10/25 Information Source: Patient Mode of Arrival: EMS Severity: Moderate Timing: Days (2-3) Duration: Since onset Location: Chest (L) Radiation: Arm (L) Quality: Sharp Onset: At Rest PE Risk Factors: None History of: None Modifying Factors: Nothing Past Medical History PAST MEDICAL HISTORY: DM, GERD, High Lipids, HTN Past Medical History (Other): Vertigo Surgical History: Denies all surgeries Family History Family History: Unknown Social History Smoker: Non-Smoker Alcohol: Denies ETOH Use Drugs: Denies Drug Use Lives In: Home Constitutional: denies: chills, diaphoresis, fatigue, fever, malaise, sweats, weakness, others EENTM: denies: blurred vision, double vision, ear bleeding, ear discharge, ear drainage, ear pain, ear ringing, eye pain, eye redness, hearing loss, mouth pain, mouth swelling, nasal discharge, nose bleeding, nose congestion, nose pain, photophobia, tearing, throat pain, throat swelling, voice changes, others Respiratory: denies: cough, hemoptysis, orthopnea, SOB at rest, shortness of breath, SOB with excertion, stridor, wheezing, others Cardiovascular: reports: chest pain, left arm pain; denies: dizzy spells, diaphoresis, Dyspnea on exertion, edema, irregular heart beat, lightheadedness, palpitations, PND, syncope, others Gastrointestinal: reports: abdominal pain; denies: abdomen distended, blood streaked bowels, constipated, diarrhea, dysphagia, difficulty swallowing, hematemesis, melena, nausea, poor appetite, poor fluid intake, rectal bleeding, rectal pain, vomiting, others Genitourinary: denies: burning, dysuria, flank pain, frequency, hematuria, incontinence, penile discharge, penile sore, pain, testicle pain, testicle swelling, urgency, others Neurological: reports: dizziness; denies: fainting, headache, left sided numbness, left sided weakness, numbness, paresthesia, pre-existing deficit, right sided numbness, right sided weakness, seizure, speech problems, tingling, tremors, weakness, others Musculoskeletal: denies: back pain, gout, joint pain, joint swelling, muscle pain, muscle stiffness, neck pain, others Integumetry: denies: bruises, change in color, change in hair/nails, dryness, laceration, lesions, lumps, rash, wounds, others Allergic/Immunocompromised: denies: Difficulty Healing, Frequent Infections, Hives, Itching, others Hematologic/Lymphatic: denies: anemia, blood clots, easy bleeding, easy bruisin g, swollen glands, others Endocrine: denies: excessive hunger, excessive sweating, excessive thirst, excessive urination, flushing, intolerance to cold, intolerance to heat, unexplained weight gain, unexplained weight loss, others Psychiatric: denies: anxiety, bipolar disorder, depression, hopeless, panic disorder, schizophrenia, sleepless, suicidal, others All Other Systems: Reviewed and Negative Physical Exam General Appearance: No Apparent Distress, Normal HEENT: Normal ENT Inspection, Pharynx Normal, TMs Normal Neck: Full Range of Motion, Non-Tender, Normal, Normal Inspection Respiratory: Chest Non-Tender, Lungs Clear, No Accessory Muscle Use, No Respiratory Distress, Normal Breath Sounds Cardiovascular: No Edema, No JVD, No Murmur, No Gallop, Normal Peripheral Pulses, Regular Rate/Rhythm Breast Exam: Deferred Gastrointestinal: No Organomegaly, Non Tender, No Pulsatile Mass, Normal Bowel Sounds, Soft Genitalia: Deferred Pelvic: Deferred Rectal: Deferred Extremities: No calf tenderness, Normal capillary refill, Normal inspection, Normal range of motion, Non-tender, No pedal edema Musculoskeletal : Apperance: Normal Neurologic: Alert, 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 Was a procedure done?: No CP Differential Dx Differential Diagnosis: N/A Differential Diagnosis: Angina, Aortic dissection, Chest Wall Pain, Cholelithiasis, Costochondritis, Esophageal reflux/spasm, Gastritis, Myocardial Infarction, Pericarditis X-Ray, Labs, Meds, VS Vital Signs Date Time Temp Pulse Resp B/P (MAP) Pulse Ox O2 Delivery O2 Flow Rate FiO2 09/11/25 17:41 74 09/11/25 17:06 74 09/11/25 16:55 99.2 74 16 165/89 (114) 96 99.2 09/11/25 15:36 81 09/11/25 14:42 97.9 94 16 134/84 99 97.9 09/11/25 14:33 86 Lab Test 09/11/25 17:50 09/11/25 16:44 Range/Units Troponin I High Sensitivity 12 12 </=54 ng/L White Blood Count 7.1 4.4-10.8 10^3/uL Red Blood Count 4.14 L 4.5-5.90 10^6/uL Hemoglobin 13.1 L 13.5-17.5 g/dL Hematocrit 38.6 L 41.0-53.0 % Mean Corpuscular Volume 93.4 80.0-100.0 fL Mean Corpuscular Hemoglobin 31.6 28.0-32.0 pg Mean Corpuscular Hemoglobin Concent 33.9 32.0-36.0 g/dL Red Cell Distribution Width 15.8 H 11.8-14.3 % Platelet Count 279 140-450 10^3/uL Mean Platelet Volume 7.1 6.9-10.8 fL Neutrophils (%) (Auto) 56.6 37.0-80.0 % Lymphocytes (%) (Auto) 25.3 10.0-50.0 % Monocytes (%) (Auto) 16.2 H 0.0-12.0 % Eosinophils (%) (Auto) 0.8 0.0-7.0 % Basophils (%) (Auto) 1.1 0.0-2.0 % Neutrophils # (Auto) 4.0 1.6-8.6 10 ^3/uL Lymphocytes # (Auto) 1.8 0.4-5.4 10 ^3/uL Monocytes # (Auto) 1.1 0-1.3 10 ^3/uL Eosinophils # (Auto) 0.1 0-0.8 10 ^3/uL Basophils # (Auto) 0.1 0-0.2 10 ^3/uL Nucleated Red Blood Cells 0.0 % Sodium Level 135 L 136-145 mmol/L Potassium Level 4.1 3.5-5.1 mmol/L Chloride Level 97 L 98-107 mmol/L Carbon Dioxide Level 27 20-31 mmol/L Anion Gap 11 5-15 Blood Urea Nitrogen 9 9-23 mg/dL Creatinine 0.98 0.700-1.30 mg/dL Glomerular Filtration Rate Calc 79 >90 mL/min BUN/Creatinine Ratio 9.2 L 10.0-20.0 Serum Glucose 89 74-106 mg/dL Calcium Level 9.7 8.7-10.4 mg/dL Current Medications Medications (Trade) Dose Ordered Sig/Lonnie Route Start Time Stop Time Status Last Admin Famotidine (Pepcid Tablet) 20 mg ONCE ONCE PO 09/11/25 16:30 09/11/25 16:31 DC 09/11/25 17:02 Ondansetron HCl (Zofran Po) 4 mg ONCE ONCE PO 09/11/25 16:30 09/11/25 16:31 DC 09/11/25 17:01 Al Hydrox/Mg Hydrox/Simethicone (Maalox Plus) 15 ml ONCE ONCE PO 09/11/25 16:30 09/11/25 16:31 DC 09/11/25 17:05 Meclizine HCl (Antivert Tablet) 25 mg ONCE ONCE PO 09/11/25 17:45 09/11/25 17:46 DC 09/11/25 17:43 Time of 1ST Reevaluation: 16:34 Reevaluation 1ST: Unchanged Patient Education/Counseling: Diagnosis, Treatment, Prognosis Family Education/Counseling: No Family Present SEPSIS Sepsis Screen Date sepsis recognized/suspect: Sep 11, 2025 Time Sepsis recognized/suspect: 1446 Recent Procedure: No On Antibiotic Therapy: No Respiratory Rate >20: No Heart Rate >90: No Temp<36 C (96.8 F) or >38.3 C: No SBP <90 or MAP <65 mmHG: No New Acute Mental Status Change: No Is the patient on CPAP, BIPAP,: No Physician Orders Electrocardigram (09/11/25 14:53) Electrocardigram (09/11/25 15:53) Electrocardigram (09/11/25 17:53) Urinalysis (09/11/25 16:27) Chest Portable (09/11/25 16:27) Troponin-I Hs (09/11/25 19:27) Vital Signs Date Time Temp Pulse Resp B/P (MAP) Pulse Ox O2 Delivery O2 Flow Rate FiO2 09/11/25 17:41 74 09/11/25 17:06 74 09/11/25 16:55 99.2 74 16 165/89 (114) 96 99.2 09/11/25 15:36 81 09/11/25 14:42 97.9 94 16 134/84 99 97.9 09/11/25 14:33 86 Laboratory Tests Test 09/11/25 16:44 White Blood Count 7.1 10^3/uL (4.4-10.8) Medications Medications Dose Ordered Sig/Lonnie Route Start Time Stop Time Status Last Admin Dose Admin Al Hydrox/Mg Hydrox/Simethicone 15 ml ONCE ONCE PO 09/11/25 16:30 09/11/25 16:31 DC 09/11/25 17:05 Famotidine 20 mg ONCE ONCE PO 09/11/25 16:30 09/11/25 16:31 DC 09/11/25 17:02 Meclizine HCl 25 mg ONCE ONCE PO 09/11/25 17:45 09/11/25 17:46 DC 09/11/25 17:43 Ondansetron HCl 4 mg ONCE ONCE PO 09/11/25 16:30 09/11/25 16:31 DC 09/11/25 17:01 Departure 1 Departure Time of Disposition: 18:28 (Discussed with Dr. Emmanuel Taylor who agrees to admit the patient.Patient presented with chest pain that was concerning for possible STEMI, ACS, PE, Pneumonia, Muscle Strain, COPD, Dissection. Data: 1. I ordered and reviewed the result of at least 3 labs including a CBC, BMP, and Troponin. 2. I independently interpreted the following tests: EKG which shows paste arrhythmia and Chest X-ray which shows benign chest.Risk:This patient has a high risk of morbidity due to further diagnostic testing or treatment and may suffer from an acute cardiac or respiratory disorder. Workup reveals concern for ACS and patient should be admitted for further workup and possible expert consultation. ) Impression: Primary Impression: Acute chest pain Additional Impressions: Generalized weakness Dizziness Disposition: 09 ADMITTED INPATIENT Admit to: Tele Condition: Guarded Critical Care Note Critical Care Time?: No Stability Stability form required: No Heart Score Heart Score: Heart Score Response (Comments) Value History Highly Suspicious 2 EKG Repolarization Disturb 1 Age >65 2 Risk Factors >3 or Hx ASHD 2 Troponin 1-2 x's Normal limit 1 Total 8 I personally scribed for DAKOTA FERGUSON MD ([email or web address]) on 09/11/25 at 16:34. Electronically submitted by Reyna Zamora ([facility]). DAKOTA FERGUSON MD Sep 11, 2025 16:34
[2025-09-11 16:57] LABS: Hematocrit 38.6 % (41.0-53.0); Hemoglobin 13.1 g/dL (13.5-17.5); Mean Corpuscular Hemoglobin 31.6 pg (28.0-32.0); Mean Corpuscular Volume 93.4 fL (80.0-100.0); Nucleated Red Blood Cells % 0.0 %
[2025-09-11] MEDS: ONDANSETRON ODT 4 MG TAB PO ONE (17:01)
[2025-09-11] MEDS: FAMOTIDINE 20 MG TAB PO ONE (17:02)
[2025-09-11] MEDS: MAALOX PLUS or MAALOX 30 ML PO ONE (17:05)
--- NOTE | 2025-09-11 17:06 | DVH ---
CHEST RADIOGRAPH Indication: chest pain Technique: Single frontal view of the chest was obtained Comparison: XY CHEST XRAY 1 VIEW on DOS: 07/08/25 FINDINGS: Lines and Tubes: Dual-chamber pacemaker in place with pulse generator over the left chest. Lungs: No focal consolidation. Pleura: No effusion. No pneumothorax. Cardiomediastinal contours: Unremarkable Bones: No acute osseous abnormality. IMPRESSION: 1. Dual-chamber pacemaker in place with pulse generator over the left chest. 2. No pneumothorax.
[2025-09-11 17:18] LABS: Potassium 4.1 mmol/L (3.5-5.1)
[2025-09-11 17:19] LABS: Anion Gap 11 (5-15); Calcium 9.7 mg/dL (8.7-10.4); Carbon Dioxide 27 mmol/L (20-31)
[2025-09-11 17:24] LABS: BUN/Creatinine Ratio 9.2 (10.0-20.0); Glucose 89 mg/dL (74-106)
[2025-09-11 17:31] LABS: Blood Urea Nitrogen 9 mg/dL (9-23); Chloride 97 mmol/L (98-107); Sodium 135 mmol/L (136-145)
[2025-09-11] MEDS: MECLIZINE HCL 25 MG TAB PO ONE (17:43)
[2025-09-11] MEDS ORDERED: NITROGLYCERIN 0.4 MG SL TAB SL PRN (20:30)
[2025-09-11] MEDS ORDERED: DOCUSATE SOD 100 MG CAP PO PRN (20:30)
[2025-09-11] MEDS ORDERED: ONDANSETRON HCL 4 MG/2 ML VIAL IV PRN (20:30)
[2025-09-11] MEDS ORDERED: MORPHINE SULFATE INJ 2 MG/ml SYRG IV PRN ×2 (20:30)
--- NOTE | 2025-09-11 20:30 | DVHHP2 ---
History of Present Illness HPI 75 y.o male presents to the ED for a chief complaint of left sided chest pain radiating to his left arm associated with nausea, dizziness and acid reflux x 2- 3 days. Patient reports he is currently residing in a care facility in which he does not know the name of. He has requested to get his medication for GERD and Vertigo but states he has not been given any of his medications for the past 2 days. He is unable to eat given acid reflux x 3 days. He mentions previous chest pain and has a pacemaker however states this type of pain is different and more persistent. He denies any nausea, vomiting, diarrhea, fever, chills. Home Meds Active Scripts Meclizine Hcl (Meclizine Hcl) 25 Mg Tab, 12.5 MG PO [id number] PRN for 30 Days, #30 TAB Prov:CHAITANYA BLOOM RESIDENT 07/10/25 Ergocalciferol (Vitamin D (Ergocalciferol) 50,000 Unit Cap, 47288 UNIT PO QWEEKLY for 60 Days, #10 CAP Prov:CHAITANYA BLOOM 07/10/25 Atorvastatin Calcium (ATORVASTATIN CALCIUM) 20 Mg Tab, 1 TAB PO HS for 30 Days, #30 TAB 5 Refills Prov:CHAITANYA BLOOM 07/10/25 Acetaminophen (Tylenol) 650 Mg Rc, 650 MG PO Q6HPRN PRN for 15 Days, #120 TAB Prov:CHAITANYA BLOOM 07/10/25 Past Medical History Patient Family History: Patient reports no known family medical history. H&P Exam Vital Signs Vital Signs Date Time Temp Pulse Resp B/P (MAP) Pulse Ox O2 Delivery O2 Flow Rate FiO2 09/11/25 19:49 97.6 76 17 115/83 (94) 97 97.6 SEPSIS Sepsis Screen Date sepsis recognized/suspect: Sep 11, 2025 Time Sepsis recognized/suspect: 1447 Recent Procedure: No On Antibiotic Therapy: No Respiratory Rate >20: No Heart Rate >90: No Temp<36 C (96.8 F) or >38.3 C: No SBP <90 or MAP <65 mmHG: No New Acute Mental Status Change: No Is the patient on CPAP, BIPAP,: No Physician Orders Electrocardigram (09/11/25 14:53) Electrocardigram (09/11/25 15:53) Electrocardigram (09/11/25 17:53) Urinalysis (09/11/25 16:27) Chest Portable (09/11/25 16:27) Admit (09/11/25 20:23) Code Status (09/11/25 20:23) Hydrocodone-Acet 5/325mg Tab ([place] 5/32 (09/11/25 20:30) Ondansetron Hcl (Zofran) (09/11/25 20:30) Docusate Sodium Capsule (Colace Capsule) (09/11/25 20:30) Enoxaparin Sodium (Lovenox) (09/12/25 10:00) Complete Blood Count (09/12/25 04:00) Comprehensive Metabolic Panel (09/12/25 04:00) Condition: Serious (09/11/25 20:23) Acetaminophen Tablet (Tylenol Tablet) (09/11/25 20:30) Morphine Sulfate Injection (09/11/25 20:30) Nitroglycerin Sublingual (Ntrostat Subli (09/11/25 20:30) Morphine Sulfate Injection (09/11/25 20:30) Stat Ekg For Chest Pain (09/11/25 20:23) Notify Md Of Changes From Base (09/11/25 20:23) Wash Operator For 24 Hours (09/11/25 20:23) Emergency Dysrhythmia Protocol (09/11/25 20:23) Rhythm Strips Once Every Shift (09/11/25 20:23) Oxygen By Nasal Cannula (09/11/25 20:23) Vital Signs Date Time Temp Pulse Resp B/P (MAP) Pulse Ox O2 Delivery O2 Flow Rate FiO2 09/11/25 19:49 97.6 76 17 115/83 (94) 97 97.6 09/11/25 17:41 74 09/11/25 17:06 74 09/11/25 16:55 99.2 74 16 165/89 (114) 96 99.2 09/11/25 15:36 81 09/11/25 14:42 97.9 94 16 134/84 99 97.9 09/11/25 14:33 86 Laboratory Tests Test 09/11/25 16:44 White Blood Count 7.1 10^3/uL (4.4-10.8) Medications Medications Dose Ordered Sig/Lonnie Route Start Time Stop Time Status Last Admin Dose Admin Al Hydrox/Mg Hydrox/Simethicone 15 ml ONCE ONCE PO 09/11/25 16:30 09/11/25 16:31 DC 09/11/25 17:05 15 ML Famotidine 20 mg ONCE ONCE PO 09/11/25 16:30 09/11/25 16:31 DC 09/11/25 17:02 20 MG Meclizine HCl 25 mg ONCE ONCE PO 09/11/25 17:45 09/11/25 17:46 DC 09/11/25 17:43 25 MG Ondansetron HCl 4 mg ONCE ONCE PO 09/11/25 16:30 09/11/25 16:31 DC 09/11/25 17:01 4 MG Labs/Xrays Labs Test 09/11/25 17:50 09/11/25 16:44 Range/Units Troponin I High Sensitivity 12 </=54 ng/L White Blood Count 7.1 4.4-10.8 10^3/uL Red Blood Count 4.14 L 4.5-5.90 10^6/uL Hemoglobin 13.1 L 13.5-17.5 g/dL Hematocrit 38.6 L 41.0-53.0 % Mean Corpuscular Volume 93.4 80.0-100.0 fL Mean Corpuscular Hemoglobin 31.6 28.0-32.0 pg Mean Corpuscular Hemoglobin Concent 33.9 32.0-36.0 g/dL Red Cell Distribution Width 15.8 H 11.8-14.3 % Platelet Count 279 140-450 10^3/uL Mean Platelet Volume 7.1 6.9-10.8 fL Neutrophils (%) (Auto) 56.6 37.0-80.0 % Lymphocytes (%) (Auto) 25.3 10.0-50.0 % Monocytes (%) (Auto) 16.2 H 0.0-12.0 % Eosinophils (%) (Auto) 0.8 0.0-7.0 % Basophils (%) (Auto) 1.1 0.0-2.0 % Neutrophils # (Auto) 4.0 1.6-8.6 10 ^3/uL Lymphocytes # (Auto) 1.8 0.4-5.4 10 ^3/uL Monocytes # (Auto) 1.1 0-1.3 10 ^3/uL Eosinophils # (Auto) 0.1 0-0.8 10 ^3/uL Basophils # (Auto) 0.1 0-0.2 10 ^3/uL Nucleated Red Blood Cells 0.0 % Sodium Level 135 L 136-145 mmol/L Potassium Level 4.1 3.5-5.1 mmol/L Chloride Level 97 L 98-107 mmol/L Carbon Dioxide Level 27 20-31 mmol/L Anion Gap 11 5-15 Blood Urea Nitrogen 9 9-23 mg/dL Creatinine 0.98 0.700-1.30 mg/dL Glomerular Filtration Rate Calc 79 >90 mL/min BUN/Creatinine Ratio 9.2 L 10.0-20.0 Serum Glucose 89 74-106 mg/dL Calcium Level 9.7 8.7-10.4 mg/dL Assessment/Plan Primary Diagnosis 75 y.o male presents to the ED for a chief complaint of left sided chest pain radiating to his left arm associated with nausea, dizziness and acid reflux x 2- 3 days. Patient reports he is currently residing in a care facility in which he does not know the name of. He has requested to get his medication for GERD and Vertigo but states he has not been given any of his medications for the past 2 days. He is unable to eat given acid reflux x 3 days. He mentions previous chest pain and has a pacemaker however states this type of pain is different and more persistent. He denies any nausea, vomiting, diarrhea, fever, chills. Chest pain DM type II HTN. GERD Generalized weakness Dizziness consult to cardiology chest pain work up Plan discussed with: Patient WILTONCHALO Petty DO Sep 11, 2025 20:30
[2025-09-11] MEDS: HYDROcodone-ACET 5/325MG TAB PO PRN (22:05)
[2025-09-11 22:36] VITALS: BP 135/92; PULSE 75; TEMP 97.8; O2SAT 97
[2025-09-12] VITALS (9 sets, daily range): BP systolic 104–148; BP diastolic 54–88; PULSE 61–91; RESP 16–18; TEMP 97.8–99; O2SAT 95–98
[2025-09-12 08:12] LABS: Hematocrit 37.9 % (41.0-53.0); Hemoglobin 12.9 g/dL (13.5-17.5); Mean Corpuscular Hemoglobin 31.7 pg (28.0-32.0); Mean Corpuscular Volume 93.2 fL (80.0-100.0)
[2025-09-12 08:32] LABS: Alanine Aminotransferase 14 U/L (7-40); Alkaline Phosphatase 103 U/L (46-116); Anion Gap 10 (5-15); BUN/Creatinine Ratio 7.8 (10.0-20.0); Calcium 9.7 mg/dL (8.7-10.4); Carbon Dioxide 28 mmol/L (20-31); Chloride 97 mmol/L (98-107); Potassium 4.1 mmol/L (3.5-5.1); Sodium 135 mmol/L (136-145)
[2025-09-12 08:33] LABS: Bilirubin, Total 0.5 mg/dL (0.2-1.0); Blood Urea Nitrogen 8 mg/dL (9-23); Glucose 117 mg/dL (74-106); Total Protein 8.2 g/dL (5.7-8.2)
[2025-09-12 08:35] LABS: Albumin 4.9 g/dL (3.2-4.8)
[2025-09-12 09:37] LABS: Total Cells Counted 100.0 (100)
[2025-09-12] MEDS: ENOXAPARIN SOD 40 MG/0.4 ML SYRINGE SC SCH (10:00)
[2025-09-12] MEDS: MECLIZINE HCL 25 MG TAB PO ONE (10:23)
[2025-09-12] MEDS ORDERED: ZOLPIDEM TARTRATE 5 MG TAB PO PRN (16:45)
[2025-09-12] MEDS: ACETAMINOPHEN 325 MG TAB PO PRN (16:57)
[2025-09-12] MEDS: MECLIZINE HCL 25 MG TAB PO PRN (16:57)
[2025-09-12] MEDS: ENOXAPARIN SOD 40 MG/0.4 ML SYRINGE SC ONE (18:15)
[2025-09-12] MEDS: HYDROcodone-ACET 5/325MG TAB ONE (18:15)
[2025-09-12] MEDS: MECLIZINE HCL 25 MG TAB ONE ×2 (18:15)
--- NOTE | 2025-09-12 18:49 | DVHINCON2 ---
Date of service: Sep 12, 2025 Referring Physician Claudia Reason for Consultation Chest pain History of Present Illness This is a 75 year old male with a PMH of DM, GERD, High Lipids, HTN who presented to the ED with complaints of left sided chest pain radiating to his left arm associated with nausea, dizziness and acid reflux x 2-3 days. Patient reports he is currently residing in a care facility in which he does not know t he name of. He has requested to get his medication for GERD and Vertigo but states he has not been given any of his medications for the past 2 days. He is unable to eat given acid reflux x 3 days. Chest x-ray shows a dual-chamber pacemaker in place with pulse generator over the left chest. Troponin is negative x2. Patient was admitted to the hospital. I am asked to consult on this patient. Family History: Patient reports no known family medical history. Allergies: Coded Allergies: NO KNOWN ALLERGIES (Unverified , 07/07/25) Home Meds Active Scripts Meclizine Hcl (Meclizine Hcl) 25 Mg Tab, 12.5 MG PO [id number] PRN for 30 Days, #30 TAB Prov:CHAITANYA BLOOM RESIDENT 07/10/25 Ergocalciferol (Vitamin D (Ergocalciferol) 50,000 Unit Cap, 04191 UNIT PO QWEEKLY for 60 Days, #10 CAP Prov:CHAITANYA BLOOM RESIDENT 07/10/25 Atorvastatin Calcium (ATORVASTATIN CALCIUM) 20 Mg Tab, 1 TAB PO HS for 30 Days, #30 TAB 5 Refills Prov:CHAITANYA BLOOM 07/10/25 Acetaminophen (Tylenol) 650 Mg Rc, 650 MG PO Q6HPRN PRN for 15 Days, #120 TAB Prov:CHAITANYA BLOOM RESIDENT 07/10/25 Current Medications Current Medications Medications (Trade) Dose Ordered Sig/Lonnie Route PRN Reason Start Time Stop Time Status Last Admin Acetaminophen/ Hydrocodone Bitart ([place] 5/325MG Tab) 1 tab Q4HP PRN PO MODERATE PAIN (4-6 PAIN SCALE) 09/11/25 20:30 09/11/25 22:05 Ondansetron HCl (Zofran) 4 mg Q4HP PRN IV NAUSEA / VOMITING 09/11/25 20:30 Docusate Sodium (Colace Capsule) 100 mg BIDPRN PRN PO FOR CONSTIPATION 09/11/25 20:30 Enoxaparin Sodium (Lovenox) 40 mg DAILY SC 09/12/25 10:00 Acetaminophen (Tylenol Tablet) 650 mg Q6HP PRN PO PAIN SCALE 1-3 OR TEMP>100.4 09/11/25 20:30 Morphine Sulfate 2 mg Q4HPRN PRN IV SEVERE PAIN (7-10 PAIN SCALE) 09/11/25 20:30 Nitroglycerin (Ntrostat Sublingual) 0.4 mg Q5MINP PRN SL FOR CHEST PAIN 09/11/25 20:30 Morphine Sulfate 2 mg Q30M PRN IV FOR CHEST PAIN 09/11/25 20:30 Review of Systems Constitutional: denies: chills, diaphoresis, fatigue, fever, malaise, sweats, weakness, others EENTM: denies: blurred vision, double vision, ear bleeding, ear discharge, ear drainage, ear pain, ear ringing, eye pain, eye redness, hearing loss, mouth pain, mouth swelling, nasal discharge, nose bleeding, nose congestion, nose pain, photophobia, tearing, throat pain, throat swelling, voice changes, others Respiratory: denies: cough, hemoptysis, orthopnea, SOB at rest, shortness of breath, SOB with excertion, stridor, wheezing, others Cardiovascular: reports: chest pain, left arm pain; denies: dizzy spells, diaphoresis, Dyspnea on exertion, edema, irregular heart beat, lightheadedness, palpitations, PND, syncope, others Gastrointestinal: reports: abdominal pain; denies: abdomen distended, blood streaked bowels, constipated, diarrhea, dysphagia, difficulty swallowing, hematemesis, melena, nausea, poor appetite, poor fluid intake, rectal bleeding, rectal pain, vomiting, others Genitourinary: denies: burning, dysuria, flank pain, frequency, hematuria, incontinence, penile discharge, penile sore, pain, testicle pain, testicle swe lling, urgency, others Neurological: reports: dizziness; denies: fainting, headache, left sided numbness, left sided weakness, numbness, paresthesia, pre-existing deficit, right sided numbness, right sided weakness, seizure, speech problems, tingling, tremors, weakness, others Musculoskeletal: denies: back pain, gout, joint pain, joint swelling, muscle pain, muscle stiffness, neck pain, others Integumetry: denies: bruises, change in color, change in hair/nails, dryness, laceration, lesions, lumps, rash, wounds, others Allergic/Immunocompromised: denies: Difficulty Healing, Frequent Infections, Hives, Itching, others Hematologic/Lymphatic: denies: anemia, blood clots, easy bleeding, easy bruising, swollen glands, others Endocrine: denies: excessive hunger, excessive sweating, excessive thirst, excessive urination, flushing, intolerance to cold, intolerance to heat, unexplained weight gain, unexplained weight loss, others Psychiatric: denies: anxiety, bipolar disorder, depression, hopeless, panic disorder, schizophrenia, sleepless, suicidal, others All Other Systems: Reviewed and Negative Vital Signs Vital Signs Date Time Temp Pulse Resp B/P (MAP) Pulse Ox O2 Delivery O2 Flow Rate FiO2 09/12/25 09:00 79 17 128/56 (80) 97 09/12/25 05:00 98.0 98.0 09/11/25 22:36 Room Air* 0 21 Physical Exam GENERAL: Alert and oriented x 3. No acute distress. EYES: PERRL, EOMI. Anicteric. HENT: Moist mucous membranes. LUNGS: Clear to auscultation bilaterally. CARDIOVASCULAR: Regular rate and rhythm. ABDOMEN: Soft, nontender and nondistended. EXTREMITIES: No edema. NEUROLOGIC: No focal neurological deficits. SKIN: Warm, dry. Labs/Diagnostic Data Labs Test 09/12/25 07:19 09/11/25 17:50 09/11/25 16:44 Range/Units White Blood Count 5.4 4.4-10.8 10^3/uL Red Blood Count 4.06 L 4.5-5.90 10^6/uL Hemoglobin 12.9 L 13.5-17.5 g/dL Hematocrit 37.9 L 41.0-53.0 % Mean Corpuscular Volume 93.2 80.0-100.0 fL Mean Corpuscular Hemoglobin 31.7 28.0-32.0 pg Mean Corpuscular Hemoglobin Concent 34.0 32.0-36.0 g/dL Red Cell Distribution Width 15.7 H 11.8-14.3 % Platelet Count 301 140-450 10^3/uL Mean Platelet Volume 7.5 6.9-10.8 fL Neutrophils (%) (Auto) 37.0-80.0 % Lymphocytes (%) (Auto) 10.0-50.0 % Monocytes (%) (Auto) 0.0-12.0 % Basophils (%) (Auto) 0.0-2.0 % Neutrophils # (Auto) 1.6-8.6 10 ^3/uL Lymphocytes # (Auto) 0.4-5.4 10 ^3/uL Monocytes # (Auto) 0-1.3 10 ^3/uL Differential Total Cells Counted 100.0 100 Neutrophils % (Manual) 66 37.0-80.0 Band Neutrophils % (Manual) 4 Lymphocytes % (Manual) 22 10.0-50.0 Monocytes % (Manual) 8 0-12 Eosinophils % (Manual) 0 0-7 Basophils % (Manual) 0 0.0-2.0 Metamyelocytes % (manual) 0 Myelocytes % (Manual) 0 Promyelocytes % (Manual) 0 Blast Cells % (Manual) 0 Reactive Lymphocytes 0 Platelet Estimate Adequate Sodium Level 135 L 136-145 mmol/L Potassium Level 4.1 3.5-5.1 mmol/L Chloride Level 97 L 98-107 mmol/L Carbon Dioxide Level 28 20-31 mmol/L Anion Gap 10 5-15 Blood Urea Nitrogen 8 L 9-23 mg/dL Creatinine 1.02 0.700-1.30 mg/dL Glomerular Filtration Rate Calc 76 >90 mL/min BUN/Creatinine Ratio 7.8 L 10.0-20.0 Serum Glucose 117 H 74-106 mg/dL Calcium Level 9.7 8.7-10.4 mg/dL Total Bilirubin 0.5 0.2-1.0 mg/dL Aspartate Amino Transferase (AST) 17 13-40 U/L Alanine Aminotransferase (ALT) 14 7-40 U/L Alkaline Phosphatase 103 46-116 U/L Total Protein 8.2 5.7-8.2 g/dL Albumin 4.9 H 3.2-4.8 g/dL Troponin I High Sensitivity 12 </=54 ng/L Eosinophils (%) (Auto) 0.8 0.0-7.0 % Eosinophils # (Auto) 0.1 0-0.8 10 ^3/uL Basophils # (Auto) 0.1 0-0.2 10 ^3/uL Nucleated Red Blood Cells 0.0 % Assessment Chest pain. DM. HTN. GERD. Plan/Recommendation I agree with your ongoing assessment and care of plan. Morphine and [place] for pain management. DVT prophylactics. Nitro SL. Additional plan as per the hospital course. A total of 45 minutes was spent reviewing the patient record, examining the patient, making a diagnostic and therapeutic plan, discussing this plan with medical personnel, following up on diagnostic studies and following the patient for clinical stability excluding any and all procedures. At least 50% of this time was spent in direct, [id number] contact. Plan discussed with: Patient JESSICA LINN MD Sep 12, 2025 13:02
[2025-09-13] VITALS (8 sets, daily range): BP systolic 115–132; BP diastolic 67–82; PULSE 61–92; RESP 16–20; TEMP 97.4–98.6; O2SAT 95–98
--- NOTE | 2025-09-13 10:49 | ECG ---
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
--- NOTE | 2025-09-13 10:49 | ECG ---
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
--- NOTE | 2025-09-13 10:57 | ECG ---
[facility] Test Date: 2025-09-11 Test Time: 21:07:49 Pat Name: NUSRAT HERRERA Department: [facility] ED Patient ID: [id number] Room: 0216T B Gender: M [employer]: jonas : 1950 Requested By: DAKOTA FERGUSON Order Number: [id number] Reading MD: Christophe Conway Measurements Intervals [place] Rate: 70 P: 66 IA: 158 QRS: 43 QRSD: 99 T: 55 QT: 408 QTc: 441 Interpretive Statements Sinus rhythm Electronically Signed On 09-15-2025 17:42:37 PST by Christophe Conway Please click the below link to view image of tracing.
--- NOTE | 2025-09-13 14:58 | ECG ---
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
--- NOTE | 2025-09-13 16:19 | DVHPN2 ---
Progress Note - Dictate Date Seen: Sep 13, 2025 Medical Necessity Reason Pt with a Central, PICC or Fol: No Subjective Patient was seen and evaluated in follow up. Patient is c/o intermittent chest pain. EKG is NSR at 86. Telemetry reviewed. vital signs Vital Sign Date Time Temp Pulse Resp B/P (MAP) Pulse Ox O2 Delivery O2 Flow Rate FiO2 09/13/25 13:00 97.4 88 20 115/68 (84) 95 97.4 09/13/25 07:49 Room Air* 0 21 Total Intake and Output 09/12/25 09/12/25 09/13/25 15:00 23:00 07:00 Intake Total 240 ml 1600 ml Output Total 2 ml Balance 240 ml 1598 ml medications Current Medications Medications Dose Ordered Sig/Lonnie Route Start Time Stop Time Status Last Admin Dose Admin Acetaminophen/ Hydrocodone Bitart 1 tab Q4HP PRN PO 09/11/25 20:30 09/11/25 22:05 1 TAB Ondansetron HCl 4 mg Q4HP PRN IV 09/11/25 20:30 Docusate Sodium 100 mg BIDPRN PRN PO 09/11/25 20:30 Enoxaparin Sodium 40 mg DAILY SC 09/12/25 10:00 Acetaminophen 650 mg Q6HP PRN PO 09/11/25 20:30 09/13/25 11:32 650 MG Morphine Sulfate 2 mg Q4HPRN PRN IV 09/11/25 20:30 Nitroglycerin 0.4 mg Q5MINP PRN SL 09/11/25 20:30 Morphine Sulfate 2 mg Q30M PRN IV 09/11/25 20:30 Meclizine HCl 25 mg Q6HPRN PRN PO 09/12/25 16:45 09/13/25 11:32 25 MG Zolpidem Tartrate 5 mg HSPRN PRN PO 09/12/25 16:45 objective GENERAL: Alert and oriented x 3. No acute distress. EYES: PERRL, EOMI. Anicteric. HENT: Moist mucous membranes. LUNGS: Clear to auscultation bilaterally. CARDIOVASCULAR: Regular rate and rhythm. ABDOMEN: Soft, nontender and nondistended. EXTREMITIES: No edema. NEUROLOGIC: No focal neurological deficits. SKIN: Warm, dry. laboratory and microbiology Laboratory Tests 09/12/25 07:19 Test 09/12/25 07:19 Range/Units Serum Glucose 117 H 74-106 mg/dL Problem List Chest pain. DM. HTN. GERD. Assessment/Plan Continued all current supportive medical care. Morphine and [place] for pain management. DVT prophylactics. Nitro SL. Additional plan as per the hospital course. Plan discussed with: Patient JESSICA LINN MD Sep 13, 2025 16:19
[2025-09-14] VITALS (8 sets, daily range): BP systolic 105–121; BP diastolic 50–80; PULSE 56–73; RESP 16–18; TEMP 36.7; O2SAT 96–98
--- NOTE | 2025-09-15 00:29 | DVHPN2 ---
Progress Note - Dictate Date Seen: Sep 14, 2025 Medical Necessity Reason Pt with a Central, PICC or Fol: No Subjective Patient was seen and evaluated in follow up. Patient has no new complaints at this time. Patient denies any cardiac symptoms. Patient is cardiac stable for discharge. Telemetry reviewed. vital signs Vital Sign Date Time Temp Pulse Resp B/P (MAP) Pulse Ox O2 Delivery O2 Flow Rate FiO2 09/14/25 12:35 98.3 69 18 105/50 (68) 97 98.3 09/14/25 07:48 Room Air* 0 21 Total Intake and Output 09/13/25 09/13/25 09/14/25 15:00 23:00 07:00 Intake Total 110 ml 300 ml Balance 110 ml 300 ml medications Current Medications Medications Dose Ordered Sig/Lonnie Route Start Time Stop Time Status Last Admin Dose Admin Acetaminophen/ Hydrocodone Bitart 1 tab Q4HP PRN PO 09/11/25 20:30 09/13/25 18:21 1 TAB Ondansetron HCl 4 mg Q4HP PRN IV 09/11/25 20:30 Docusate Sodium 100 mg BIDPRN PRN PO 09/11/25 20:30 Enoxaparin Sodium 40 mg DAILY SC 09/12/25 10:00 Acetaminophen 650 mg Q6HP PRN PO 09/11/25 20:30 09/13/25 11:32 650 MG Morphine Sulfate 2 mg Q4HPRN PRN IV 09/11/25 20:30 Nitroglycerin 0.4 mg Q5MINP PRN SL 09/11/25 20:30 Morphine Sulfate 2 mg Q30M PRN IV 09/11/25 20:30 Meclizine HCl 25 mg Q6HPRN PRN PO 09/12/25 16:45 09/14/25 09:04 25 MG Zolpidem Tartrate 5 mg HSPRN PRN PO 09/12/25 16:45 objective GENERAL: Alert and oriented x 3. No acute distress. EYES: PERRL, EOMI. Anicteric. HENT: Moist mucous membranes. LUNGS: Clear to auscultation bilaterally. CARDIOVASCULAR: Regular rate and rhythm. ABDOMEN: Soft, nontender and nondistended. EXTREMITIES: No edema. NEUROLOGIC: No focal neurological deficits. SKIN: Warm, dry. laboratory and microbiology Laboratory Tests 09/12/25 07:19 Test 09/12/25 07:19 Range/Units Serum Glucose 117 H 74-106 mg/dL Problem List Chest pain. DM. HTN. GERD. Assessment/Plan Continued all current supportive medical care. Nitro SL. Morphine for pain management. Additional plan as per the hospital course. Plan discussed with: Other JESSICA LINN MD Sep 14, 2025 13:36
--- NOTE | 2025-09-21 23:59 | DVHDS2 ---
Discharge Summary Date of Admission Sep 11, 2025 at 20:23 Date of Discharge: Sep 14, 2025 Labs/Diagnostic Data: Laboratory Results Test 09/12/25 07:19 09/11/25 17:50 09/11/25 16:44 White Blood Count 5.4 10^3/uL (4.4-10.8) Red Blood Count 4.06 10^6/uL (4.5-5.90) Hemoglobin 12.9 g/dL (13.5-17.5) Hematocrit 37.9 % (41.0-53.0) Mean Corpuscular Volume 93.2 fL (80.0-100.0) Mean Corpuscular Hemoglobin 31.7 pg (28.0-32.0) Mean Corpuscular Hemoglobin Concent 34.0 g/dL (32.0-36.0) Red Cell Distribution Width 15.7 % (11.8-14.3) Platelet Count 301 10^3/uL (140-450) Mean Platelet Volume 7.5 fL (6.9-10.8) Neutrophils (%) (Auto) % (37.0-80.0) Lymphocytes (%) (Auto) % (10.0-50.0) Monocytes (%) (Auto) % (0.0-12.0) Basophils (%) (Auto) % (0.0-2.0) Neutrophils # (Auto) 10 ^3/uL (1.6-8.6) Lymphocytes # (Auto) 10 ^3/uL (0.4-5.4) Monocytes # (Auto) 10 ^3/uL (0-1.3) Differential Total Cells Counted 100.0 (100) Neutrophils % (Manual) 66 (37.0-80.0) Band Neutrophils % (Manual) 4 Lymphocytes % (Manual) 22 (10.0-50.0) Monocytes % (Manual) 8 (0-12) Eosinophils % (Manual) 0 (0-7) Basophils % (Manual) 0 (0.0-2.0) Metamyelocytes % (manual) 0 Myelocytes % (Manual) 0 Promyelocytes % (Manual) 0 Blast Cells % (Manual) 0 Reactive Lymphocytes 0 Platelet Estimate Adequate Sodium Level 135 mmol/L (136-145) Potassium Level 4.1 mmol/L (3.5-5.1) Chloride Level 97 mmol/L (98-107) Carbon Dioxide Level 28 mmol/L (20-31) Anion Gap 10 (5-15) Blood Urea Nitrogen 8 mg/dL (9-23) Creatinine 1.02 mg/dL (0.700-1.30) Glomerular Filtration Rate Calc 76 mL/min (>90) BUN/Creatinine Ratio 7.8 (10.0-20.0) Serum Glucose 117 mg/dL (74-106) Calcium Level 9.7 mg/dL (8.7-10.4) Total Bilirubin 0.5 mg/dL (0.2-1.0) Aspartate Amino Transferase (AST) 17 U/L (13-40) Alanine Aminotransferase (ALT) 14 U/L (7-40) Alkaline Phosphatase 103 U/L (46-116) Total Protein 8.2 g/dL (5.7-8.2) Albumin 4.9 g/dL (3.2-4.8) Troponin I High Sensitivity 12 ng/L (</=54) Eosinophils (%) (Auto) 0.8 % (0.0-7.0) Eosinophils # (Auto) 0.1 10 ^3/uL (0-0.8) Basophils # (Auto) 0.1 10 ^3/uL (0-0.2) Nucleated Red Blood Cells 0.0 % Other Laboratory Tests 09/12/25 07:19 Brief Hx & Hospital Course: 75 y.o male presents to the ED for a chief complaint of left sided chest pain radiating to his left arm associated with nausea, dizziness and acid reflux x 2- 3 days. Patient reports he is currently residing in a care facility in which he does not know the name of. He has requested to get his medication for GERD and Vertigo but states he has not been given any of his medications for the past 2 days. He is unable to eat given acid reflux x 3 days. He mentions previous chest pain and has a pacemaker however states this type of pain is different and more persistent. He denies any nausea, vomiting, diarrhea, fever, chills. Chest pain DM type II HTN. GERD Generalized weakness Dizziness consult to cardiology chest pain work up discharged back to assisted living facility Condition at Discharge: Fair Final Diagnosis/Problems List chest pain Discharge Disposition: Assisted Living Facility Discharge Instruct/Medications Diet: Cardiac 2g Na,low cholest Activity: No Restrictions, As Tolerated Scheduled Atorvastatin Calcium (Atorvastatin Calcium), 1 TAB PO HS Ergocalciferol (Vitamin D (Ergocalciferol), 50,000 UNIT PO QWEEKLY Scheduled PRN Acetaminophen (Tylenol), 650 MG PO Q6HPRN PRN Meclizine Hcl (Meclizine Hcl), 12.5 MG PO [id number] PRN Discharge Statement: "Patient was advised to return to the ER or call 911 if any headaches, dizziness, shortness of breath, chest pain, abdominal pain, bleeding, fevers, or worsening of medical condition. Patient was counseled about treatment plan, medications, possible side effects, patientverbalized understanding. All questions were answered to the best of my ability. This discharge took greater then 30 minutes in planning, reviewing documentation, counseling the patient, and discussing with other team members." ASSESSMENT ASSESSMENT Assessment CHALO NÚÑEZ DO Sep 21, 2025 23:59
--- NOTE | 2025-09-22 00:06 | DVHPN2 ---
Progress Note Date Seen: Sep 12, 2025 Medical Necessity Reason Pt with a Central, PICC or Fol: No Subjective Review of Systems: HEENT:Normal Objective Examination: GENERAL:Normal, HEENT:Normal, NECK:Normal laboratory and microbiology Laboratory Tests 09/12/25 07:19 Test 09/12/25 07:19 Range/Units Serum Glucose 117 H 74-106 mg/dL Labs and/or images reviewed: Labs reviewed by me Problem List/Assessment/Plan Problem List/Assessment/Plan 75 y.o male presents to the ED for a chief complaint of left sided chest pain radiating to his left arm associated with nausea, dizziness and acid reflux x 2- 3 days. Patient reports he is currently residing in a care facility in which he does not know the name of. He has requested to get his medication for GERD and Vertigo but states he has not been given any of his medications for the past 2 days. He is unable to eat given acid reflux x 3 days. He mentions previous chest pain and has a pacemaker however states this type of pain is different and more persistent. He denies any nausea, vomiting, diarrhea, fever, chills. Chest pain ACS rule out intractable nausea dizziness, intractable DM type II HTN. GERD Generalized weakness Dizziness consult to cardiology chest pain work up Plan discussed with: Patient CHALO NÚÑEZ DO Sep 22, 2025 00:06
--- NOTE | 2025-09-22 00:07 | DVHPN2 ---
Progress Note Date Seen: Sep 13, 2025 Medical Necessity Reason Pt with a Central, PICC or Fol: No Objective laboratory and microbiology Laboratory Tests 09/12/25 07:19 Test 09/12/25 07:19 Range/Units Serum Glucose 117 H 74-106 mg/dL Labs and/or images reviewed: Labs reviewed by me, Image(s) reviewed by me Problem List/Assessment/Plan Problem List/Assessment/Plan 75 y.o male presents to the ED for a chief complaint of left sided chest pain radiating to his left arm associated with nausea, dizziness and acid reflux x 2- 3 days. Patient reports he is currently residing in a care facility in which he does not know the name of. He has requested to get his medication for GERD and Vertigo but states he has not been given any of his medications for the past 2 days. He is unable to eat given acid reflux x 3 days. He mentions previous chest pain and has a pacemaker however states this type of pain is different and more persistent. He denies any nausea, vomiting, diarrhea, fever, chills. Chest pain ACS rule out intractable nausea dizziness, intractable DM type II HTN. GERD Generalized weakness Dizziness consult to cardiology chest pain work up improving, possible d/c in 24 hours Plan discussed with: Patient CHALO NÚÑEZ DO Sep 22, 2025 00:06
== END 2025-09-14 19:05 | disposition home or self-care (01) | DRG 392 ==
LOC: ER 14:31 → EDBD 14:31 → EDUNIT# 14:31 → OVERFLOW 20:23 → TELE-CENTR 09-12 14:03
PROVIDERS: ADMIT Internal Medicine; ATTEND Internal Medicine
DX: K21.9 Gastro-esophageal reflux disease without esophagitis (principal); E11.9 Type 2 diabetes mellitus without complications; I10 Essential (primary) hypertension; E78.5 Hyperlipidemia, unspecified; Z95.0 Presence of cardiac pacemaker
CPT/HCPCS: 36415; 71045; 80048; 80053; 84484; 85007; 85025; 85027; 93005; G0378

== ENCOUNTER 2025-10-15 18:02 | Inpatient (IN) | payer MEDICARE, MEDICAID ==
[~2025-10-15] VITALS: Ht 175.3 cm; Wt 80.4 kg
--- NOTE | 2025-10-15 18:26 | ED.PDOC ---
HPI Comments HPI: 75 year old male presents to the ED via EMS with a chief complaint of chest pain onset 8 weeks. Per EMS, patient has been experiencing intermittent, LT-sided chest pain, noticed pain began after getting Pacemaker placed, at [facility]. Patient states pain is 8/10, causes associated symptoms of dizziness, shortness of breath. Prior to EMS arrival, patient took Nitro around 17:00, was given Aspirin 324 mg by EMS in route to ED, currently pain has improved. Denies headache, dizziness, shortness of breath, nausea, vomiting, diarrhea, numbness/tingling, fever, chills. No other symptoms or modifying factors present at this time. Initial Vitals BP: HR: RR: O2 Sat: Temp: Past Medical history: HTN, HLD, Alzheimer's disease, GERD Past Surgical history: Pacemaker Medications: Nitroglycerin Social History: Denies smoking, ETOH, and drug use. Allergies: NKDA MOBELY: CP, PACEMAKER, ASA/NITRO HPI: Poor Historian. REVIEW OF SYSTEMS: CONSTITUTIONAL: Denies acute: fever, diaphoresis, chills, generalized weakness. HEAD: Denies acute: headache, photophobia Eyes: Denies acute: Double vision, vision loss, eye pain, eye discharge. EARS: Denies acute: tinnitus, hearing loss, ear discharge, ear pain, THROAT: Denies acute: sore throat, swelling, difficulty swallowing , pain with swallowing, change in voice. NECK: Denies acute: neck pain, neck swelling, stiff neck. HEART: Denies acute : palpitations, LUNGS: Denies acute: SOB, wheezing, cough, hemoptysis ABDOMEN: Denies acute: abdominal pain, Nausea, Vomiting, diarrhea, melena , hematemesis, hematochezia SKIN: Denies acute: rash, redness, lesions, itchiness. EXTREMITIES: Denies acute: calf pain, numbness, tingling, weakness, denies pain in extremity. Denies acute: Low back pain. Neuro: Denies acute: focal neurological deficit, motor or sensory focal neurological deficit, tremors, seizure like activity, confusion, dizziness, change in mental status, loss of bowel or bladder function, cauda equina like symptoms. : Denies acute: dysuria, hematuria, flank pain, increase in urinary frequency. PSYCH: Denies acute: hallucination, suicidal ideation, homicidal ideation. PHYSICAL EXAM: General: -----mild---acute distress, awake and alert. Head: normocephalic, atraumatic. No raccoon's eyes, no alexander sign. Neck: supple, trachea is midline, no swelling. Throat: Normal phonation. Eyes:, no erythema, no purulent discharge, no proptosis, no icterus. Heart: regular rate, regular rhythm, no significant murmur appreciated. Lungs: no apparent respiratory distress, Able to speak in full sentences. No wheezing, no rhonchi, no crackles. No stridors Clear to auscultation bilaterally. Abdomen: non tender to palpation, non distended, soft, no guarding, no rebound, + bowel sounds. Noted left anterior chest wall pacemaker in place. No apparent swelling or erythema. Neuro: Awake, Alert, oriented to name, self, situation, follows commands. History of dementia GCS=15. Speech is normal. Skin: no petechia, no purpura, no cyanosis, non-pale, not jaundice. Lower extremities: --trace - Pitting edema no deformity, no focal swelling, no calf TTP. Makes eye contact. moves all four extremities. Face: no apparent facial droop. ED COURSE: DISCLAIMER: This medical document was created using an electronic medical record system with voice recognition software and computerized dictation system. Although this document has been carefully reviewed, there might still be some phonetic and typographical errors. Occasional wrong-word or "sound-alike" substitutions may have occurred due to the inherent limitations of voice recognition software. These areas are purely typographical due to imperfections of the software programs and do not reflect any compromise in the patient's medical care. Please read the chart carefully and recognize, using context, where these substitutions have occurred. Time Seen by MD: 18:15 Reviewed Notes: Medications, Allergies Allergies: Coded Allergies: NO KNOWN ALLERGIES (Unverified , 07/07/25) Home Meds Active Scripts Hydrocodone-Acetaminophen (Hydrocodone Bitartrate/AC 5-325 mg) 1 Tab Tab, 1 TAB PO Q6HP PRN, #20 TAB Prov:NIR BARAHONA MD 10/16/25 Azithromycin (Azithromycin) 500 Mg Tab, 1 TAB PO DAILY for 5 Days, #5 TAB Prov:NIR BARAHONA MD 10/16/25 Meclizine Hcl (Meclizine Hcl) 25 Mg Tab, 12.5 MG PO [id number] PRN for 30 Days, #30 TAB Prov:CHAITANYA BLOOM [facility] 07/10/25 Ergocalciferol (Vitamin D (Ergocalciferol) 50,000 Unit Cap, 57678 UNIT PO QWEEKLY for 60 Days, #10 CAP [facility] Atorvastatin Calcium (ATORVASTATIN CALCIUM) 20 Mg Tab, 1 TAB PO HS for 30 Days, #30 TAB 5 Refills Prov[facility] 07/10/25 Acetaminophen (Tylenol) 650 Mg Rc, 650 MG PO Q6HPRN PRN for 15 Days, #120 TAB Prov[facility] 07/10/25 Information Source: Patient, Emergency Med Personnel Mode of Arrival: EMS Timing: Weeks Duration: Intermittent Prehospital treatment: Other (aspirin 324 mg) Past Medical History PAST MEDICAL HISTORY: DM, GERD, High Lipids, HTN Surgical History: Pacemaker Family History Family History: Unknown Social History Smoker: Non-Smoker Alcohol: Denies ETOH Use Drugs: Denies Drug Use Lives In: Home Was a procedure done? Was a procedure done?: No CP Differential Dx Differential Diagnosis: N/A Differential Diagnosis: Other (Ddx include but not limitied to gastritis, musculoskeletal pain, radiculopathy, atypical chest pain, dissection, aneurysm, ACS, unstable angina, hiatal hernia, GERD, anxiety, costochondritis, PE, pneumothroax, neoplasm, cardiac ischemia, drug abuse, anemia.) X-Ray, Labs, Meds, VS Vital Signs Date Time Temp Pulse Resp B/P (MAP) Pulse Ox O2 Delivery O2 Flow Rate FiO2 10/15/25 21:14 53 10/15/25 21:08 71 10/15/25 19:30 62 22 98 Room Air* 0 21 10/15/25 19:06 56 10/15/25 18:45 56 22 98 Room Air* 0 21 10/15/25 18:45 56 22 145/78 (100) 98 10/15/25 18:02 62 10/15/25 18:02 98.3 62 18 147/79 97 98.3 Lab Test 10/15/25 19:39 10/15/25 18:39 Range/Units Troponin I High Sensitivity 14 11 </=54 ng/L White Blood Count 4.8 4.4-10.8 10^3/uL Red Blood Count 4.08 L 4.5-5.90 10^6/uL Hemoglobin 12.7 L 13.5-17.5 g/dL Hematocrit 37.5 L 41.0-53.0 % Mean Corpuscular Volume 92.0 80.0-100.0 fL Mean Corpuscular Hemoglobin 31.1 28.0-32.0 pg Mean Corpuscular Hemoglobin Concent 33.9 32.0-36.0 g/dL Red Cell Distribution Width 15.3 H 11.8-14.3 % Platelet Count 230 140-450 10^3/uL Mean Platelet Volume 7.6 6.9-10.8 fL Neutrophils (%) (Auto) 43.2 37.0-80.0 % Lymphocytes (%) (Auto) 38.9 10.0-50.0 % Monocytes (%) (Auto) 15.9 H 0.0-12.0 % Eosinophils (%) (Auto) 1.2 0.0-7.0 % Basophils (%) (Auto) 0.8 0.0-2.0 % Neutrophils # (Auto) 2.1 1.6-8.6 10 ^3/uL Lymphocytes # (Auto) 1.9 0.4-5.4 10 ^3/uL Monocytes # (Auto) 0.8 0-1.3 10 ^3/uL Eosinophils # (Auto) 0.1 0-0.8 10 ^3/uL Basophils # (Auto) 0 0-0.2 10 ^3/uL Nucleated Red Blood Cells 0.1 % Sodium Level 137 136-145 mmol/L Potassium Level 3.8 3.5-5.1 mmol/L Chloride Level 101 98-107 mmol/L Carbon Dioxide Level 27 20-31 mmol/L Anion Gap 9 5-15 Blood Urea Nitrogen 7 L 9-23 mg/dL Creatinine 1.02 0.700-1.30 mg/dL Glomerular Filtration Rate Calc 76 >90 mL/min BUN/Creatinine Ratio 6.9 L 10.0-20.0 Serum Glucose 96 74-106 mg/dL Calcium Level 9.3 8.7-10.4 mg/dL Total Bilirubin 0.3 0.2-1.0 mg/dL Aspartate Amino Transferase (AST) 16 13-40 U/L Alanine Aminotransferase (ALT) 10 7-40 U/L Alkaline Phosphatase 105 46-116 U/L B-Type Natriuretic Peptide 46.34 0-100 pg/mL Total Protein 7.6 5.7-8.2 g/dL Albumin 4.5 3.2-4.8 g/dL [place] [id number] Ph: [phone] DIAGNOSTIC IMAGING Diagnostic Imaging Report : [id number] Signed PATIENT: NUSRAT HERRERA ACCT: [id number] UNIT: [id number] : 1950 LOC: ER ROOM / BED: / AGE / SEX: 75 / M ADM STATUS: REG ER SERVICE 15 ORDERING PHYSICIAN: PRIMITIVO GUTIERREZ DO PROCEDURE(s): CXRP - CHEST PORTABLE REASON: CP ORDER NUMBER(s): [id number], ACCESSION NUMBER(s): [id number] CHEST RADIOGRAPH INDICATION: CP TECHNIQUE: Single frontal view of the chest was obtained COMPARISON: XY CHEST PORTABLE on DOS: 09/11/25, XY CHEST XRAY 1 VIEW on DOS: 07/08/25 FINDINGS: Lines and Tubes: Left chest pacer. Lungs: Mild pulmonary vascular congestion and interstitial edema. No focal consolidations. No pleural effusion or pneumothorax. Cardiomediastinal contours: Mild cardiomegaly. Bones: No acute osseous abnormality. IMPRESSION: 1. Mild pulmonary vascular congestion and interstitial edema. No focal consolidations. Mild cardiomegaly. ATED BY: TEODORO WARREN MD DICTATED DATE/TIME: 10/15/251851 SIGNED BY: TEODORO WARREN MD SIGNED DATE/TIME: 10/15/251851 CC: Time of 1ST Reevaluation: 18:45 Reevaluation 1ST: Unchanged Patient Education/Counseling: Diagnosis, Treatment Family Education/Counseling: No Family Present Comments MDM: patient presented with the above HPI.----cardiac--workup was initiated. patient was found with the above mentioned diagnosis. the following medications were ordered: please refer to order lists of meds and tests obtained by myself Dr. Gutierrez. Patient ED course and VS have been stabilized. Patient has been reassessed in the ED and remained in a stable condition. RADIOLOGY: I have reviewed all the radiological reports ordered by myself that were available at the time of disposition. EKG: I have reviewed the initial EKG and interpreted it in the absence of cardiology formal read. Pertinent incidental findings were discussed with the patient and/or family. Patient/family voices understanding and is agreeable with plan. Patient has been observed in the ED adequate length of time to insure improveme nt/stability. Escalation of care considered: Consideration of escalation to observation or admission Patient was ADMITTED to the medicine team for further evaluation and treatment of their presentation. All the reports of any imaging studies that were ordered by myself were reviewed by myself. Departure 1 Departure Time of Disposition: 18:52 Impression: Primary Impression: Chest pain Additional Impression: Pacemaker complications Disposition: ADMITTED INPATIENT Condition: Guarded Discharged With: Self Critical Care Note Critical Care Time?: No Heart Score Heart Score: Heart Score Response (Comments) Value History Moderate Suspicious 1 EKG Normal 0 Age >65 2 Risk Factors 1 or 2 risk factors 1 Troponin Normal limit 0 Total 4 I personally scribed for PRIMITIVO GUTIERREZ DO ([email or web address]) on 10/15/25 at 18:26. Electronically submitted by Juana Delarosa ([email or web address]). I personally scribed for PRIMITIVO GUTIERREZ DO ([email or web address]) on 10/15/25 at 20:12. Electronically submitted by Juana Delarosa ([email or web address]). PRIMITIVO GUTIERREZ DO Oct 15, 2025 18:26
[2025-10-15 18:45] VITALS: PULSE 56; RESP 22; O2SAT 98
--- NOTE | 2025-10-15 18:54 | DVH ---
CHEST RADIOGRAPH INDICATION: CP TECHNIQUE: Single frontal view of the chest was obtained COMPARISON: XY CHEST PORTABLE on DOS: 09/11/25, XY CHEST XRAY 1 VIEW on DOS: 07/08/25 FINDINGS: Lines and Tubes: Left chest pacer. Lungs: Mild pulmonary vascular congestion and interstitial edema. No focal consolidations. No pleural effusion or pneumothorax. Cardiomediastinal contours: Mild cardiomegaly. Bones: No acute osseous abnormality. IMPRESSION: 1. Mild pulmonary vascular congestion and interstitial edema. No focal consolidations. Mild cardiomegaly.
[2025-10-15 19:01] LABS: Hematocrit 37.5 % (41.0-53.0); Hemoglobin 12.7 g/dL (13.5-17.5); Mean Corpuscular Hemoglobin 31.1 pg (28.0-32.0); Mean Corpuscular Volume 92.0 fL (80.0-100.0); Nucleated Red Blood Cells % 0.1 %
[2025-10-15 19:18] LABS: Alanine Aminotransferase 10 U/L (7-40); Albumin 4.5 g/dL (3.2-4.8); Alkaline Phosphatase 105 U/L (46-116); Anion Gap 9 (5-15); BUN/Creatinine Ratio 6.9 (10.0-20.0); Bilirubin, Total 0.3 mg/dL (0.2-1.0); Calcium 9.3 mg/dL (8.7-10.4); Carbon Dioxide 27 mmol/L (20-31); Chloride 101 mmol/L (98-107); Glucose 96 mg/dL (74-106); Potassium 3.8 mmol/L (3.5-5.1); Sodium 137 mmol/L (136-145); Total Protein 7.6 g/dL (5.7-8.2)
[2025-10-15 19:21] LABS: Blood Urea Nitrogen 7 mg/dL (9-23)
--- NOTE | 2025-10-15 19:26 | ECG ---
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
[2025-10-15 19:30] VITALS: PULSE 62; RESP 22; O2SAT 98
[2025-10-15] MEDS: ENOXAPARIN SOD 40 MG/0.4 ML SYRINGE SC SCH (22:00)
[2025-10-15] MEDS ORDERED: HYDROcodone-ACET 5/325MG TAB PO PRN (22:00)
[2025-10-15] MEDS ORDERED: DOCUSATE SOD 100 MG CAP PO PRN (22:00)
[2025-10-15] MEDS ORDERED: MORPHINE SULFATE INJ 2 MG/ml SYRG IV PRN ×2 (22:00)
[2025-10-15] MEDS ORDERED: ONDANSETRON HCL 4 MG/2 ML VIAL IV PRN (22:00)
--- NOTE | 2025-10-15 22:10 | ECG ---
[facility] Test Date: 2025-10-15 Test Time: 21:14:02 Pat Name: NUSRAT HERRERA Department: [facility] ED Patient ID: [id number] Room: [facility] Gender: M Resident Care Coordinator: CHAD : 1950 Requested By: PRIMITIVO GUTIERREZ Order Number: [id number] Reading MD: Christophe Conway Measurements Intervals [place] Rate: 53 P: 66 CA: 135 QRS: 9 QRSD: 101 T: 59 QT: 455 QTc: 428 Interpretive Statements Sinus rhythm Electronically Signed On 10-21-2025 17:24:16 PST by Christophe Conway Please click the below link to view image of tracing.
[2025-10-15] MEDS: NITROGLYCERIN 0.4 MG SL TAB SL PRN (22:38)
--- NOTE | 2025-10-15 23:01 | DVHHP2 ---
History of Present Illness HPI 75 year old male presents to the ED via EMS with a chief complaint of chest pain onset 8 weeks. Per EMS, patient has been experiencing intermittent, LT-sided chest pain, noticed pain began after getting Pacemaker placed, at [facility]. Patient states pain is 8/10, causes associated symptoms of dizziness, shortness of breath. Prior to EMS arrival, patient took Nitro around 17:00, was given Aspirin 324 mg by EMS in route to ED, currently pain has improved. Denies headache, dizziness, shortness of breath, nausea, vomiting, diarrhea, numbness/tingling, fever, chills. No other symptoms or modifying factors present at this time. Home Meds Active Scripts Hydrocodone-Acetaminophen (Hydrocodone Bitartrate/AC 5-325 mg) 1 Tab Tab, 1 TAB PO Q6HP PRN, #20 TAB Prov:NIR BARAHONA MD 10/16/25 Azithromycin (Azithromycin) 500 Mg Tab, 1 TAB PO DAILY for 5 Days, #5 TAB Prov:NIR BARAHONA MD 10/16/25 Meclizine Hcl (Meclizine Hcl) 25 Mg Tab, 12.5 MG PO [id number] PRN for 30 Days, #30 TAB Prov:CHAITANYA BLOOM RES[facility] 07/10/25 Ergocalciferol (Vitamin D (Ergocalciferol) 50,000 Unit Cap, [address]5948 UNIT PO QWEEKLY for 60 Days, #10 CAP Prov:CHAITANYA BLOOM RES[facility] 07/10/25 Atorvastatin Calcium (ATORVASTATIN CALCIUM) 20 Mg Tab, 1 TAB PO HS for 30 Days, #30 TAB 5 Refills Prov:CHAITANYA BLOOM RESIDENT 07/10/25 Acetaminophen (Tylenol) 650 Mg Rc, 650 MG PO Q6HPRN PRN for 15 Days, #120 TAB Prov:CHAITANYA BLOOM RESIDENT 07/10/25 Past Medical History Patient Family History: Patient reports no known family medical history. H&P Exam Vital Signs Vital Signs Date Time Temp Pulse Resp B/P (MAP) Pulse Ox O2 Delivery O2 Flow Rate FiO2 10/15/25 22:38 143/81 10/15/25 22:00 58 14 97 10/15/25 19:30 Room Air* 0 21 10/15/25 18:02 98.3 98.3 SEPSIS Sepsis Screen Date sepsis recognized/suspect: Oct 15, 2025 Time Sepsis recognized/suspect: 1929 Recent Procedure: No On Antibiotic Therapy: No Respiratory Rate >20: No Heart Rate >90: No Temp<36 C (96.8 F) or >38.3 C: No SBP <90 or MAP <65 mmHG: No New Acute Mental Status Change: No Is the patient on CPAP, BIPAP,: No Physician Orders Power Reactor Operator (10/15/25 ) Chest Portable (10/15/25 18:16) Troponin-I Hs (10/15/25 21:16) Electrocardigram (10/15/25 21:16) Psychiatry Resident To Assess Pacemaker (10/15/25 18:16) Admit (10/15/25:56) Code Status (10/15/25:56) Hydrocodone-Acet 5/325mg Tab ([place] 5/32 (10/15/25 22:00) Ondansetron Hcl (Zofran) (10/15/25 22:00) Docusate Sodium Capsule (Colace Capsule) (10/15/25 22:00) Complete Blood Count (10/16/25 04:00) Comprehensive Metabolic Panel (10/16/25 04:00) Condition: Serious (10/15/25 21:56) Acetaminophen Tablet (Tylenol Tablet) (10/15/25 22:00) Morphine Sulfate Injection (10/15/25 22:00) Enoxaparin Sodium (Lovenox) (10/15/25 22:00) Nitroglycerin Sublingual (Ntrostat Subli (10/15/25 22:00) Morphine Sulfate Injection (10/15/25 22:00) Stat Ekg For Chest Pain (10/15/25 21:56) Notify Md Of Changes From Base (10/15/25 21:56) Bead Flipper For 24 Hours (10/15/25 21:56) Emergency Dysrhythmia Protocol (10/15/25 21:56) Rhythm Strips Once Every Shift (10/15/25 21:56) Oxygen By Nasal Cannula (10/15/25 21:56) * Cardiology Consult (10/15/25 22:02) Meclizine Tablet (Antivert Tablet) (10/15/25 23:00) Vital Signs Date Time Temp Pulse Resp B/P (MAP) Pulse Ox O2 Delivery O2 Flow Rate FiO2 10/15/25 22:38 143/81 10/15/25 22:00 58 14 143/81 (101) 97 10/15/25 21:14 53 10/15/25 21:08 71 10/15/25 19:30 62 22 98 Room Air* 0 21 10/15/25 19:06 56 10/15/25 18:45 56 22 98 Room Air* 0 21 10/15/25 18:45 56 22 145/78 (100) 98 10/15/25 18:02 62 10/15/25 18:02 98.3 62 18 147/79 97 98.3 Laboratory Tests Test 10/15/25 18:39 White Blood Count 4.8 10^3/uL (4.4-10.8) Medications Medications Dose Ordered Sig/Lonnie Route Start Time Stop Time Status Last Admin Dose Admin Nitroglycerin 0.4 mg Q5MINP PRN SL 10/15/25 22:00 10/15/25 22:38 0.4 MG Labs/Xrays Labs Test 10/15/25 19:39 10/15/25 18:39 Range/Units Troponin I High Sensitivity 14 </=54 ng/L White Blood Count 4.8 4.4-10.8 10^3/uL Red Blood Count 4.08 L 4.5-5.90 10^6/uL Hemoglobin 12.7 L 13.5-17.5 g/dL Hematocrit 37.5 L 41.0-53.0 % Mean Corpuscular Volume 92.0 80.0-100.0 fL Mean Corpuscular Hemoglobin 31.1 28.0-32.0 pg Mean Corpuscular Hemoglobin Concent 33.9 32.0-36.0 g/dL Red Cell Distribution Width 15.3 H 11.8-14.3 % Platelet Count 230 140-450 10^3/uL Mean Platelet Volume 7.6 6.9-10.8 fL Neutrophils (%) (Auto) 43.2 37.0-80.0 % Lymphocytes (%) (Auto) 38.9 10.0-50.0 % Monocytes (%) (Auto) 15.9 H 0.0-12.0 % Eosinophils (%) (Auto) 1.2 0.0-7.0 % Basophils (%) (Auto) 0.8 0.0-2.0 % Neutrophils # (Auto) 2.1 1.6-8.6 10 ^3/uL Lymphocytes # (Auto) 1.9 0.4-5.4 10 ^3/uL Monocytes # (Auto) 0.8 0-1.3 10 ^3/uL Eosinophils # (Auto) 0.1 0-0.8 10 ^3/uL Basophils # (Auto) 0 0-0.2 10 ^3/uL Nucleated Red Blood Cells 0.1 % Sodium Level 137 136-145 mmol/L Potassium Level 3.8 3.5-5.1 mmol/L Chloride Level 101 98-107 mmol/L Carbon Dioxide Level 27 20-31 mmol/L Anion Gap 9 5-15 Blood Urea Nitrogen 7 L 9-23 mg/dL Creatinine 1.02 0.700-1.30 mg/dL Glomerular Filtration Rate Calc 76 >90 mL/min BUN/Creatinine Ratio 6.9 L 10.0-20.0 Serum Glucose 96 74-106 mg/dL Calcium Level 9.3 8.7-10.4 mg/dL Total Bilirubin 0.3 0.2-1.0 mg/dL Aspartate Amino Transferase (AST) 16 13-40 U/L Alanine Aminotransferase (ALT) 10 7-40 U/L Alkaline Phosphatase 105 46-116 U/L B-Type Natriuretic Peptide 46.34 0-100 pg/mL Total Protein 7.6 5.7-8.2 g/dL Albumin 4.5 3.2-4.8 g/dL Assessment/Plan Primary Diagnosis 75 year old male presents to the ED via EMS with a chief complaint of chest pain onset 8 weeks. Per EMS, patient has been experiencing intermittent, LT-sided chest pain, noticed pain began after getting Pacemaker placed, at [facility]. Patient states pain is 8/10, causes associated symptoms of dizziness, shortness of breath. Prior to EMS arrival, patient took Nitro around 17:00, was given Aspirin 324 mg by EMS in route to ED, currently pain has improved. Denies headache, dizziness, shortness of breath, nausea, vomiting, diarrhea, numbness/tingling, fever, chills. No other symptoms or modifying factors present at this time. chest pain ACS rule out Pacemaker complications consult to cardiology pain control Plan discussed with: Patient CHALO NÚÑEZ DO Oct 15, 2025 23:01
--- NOTE | 2025-10-15 23:45 | DVHINCON2 ---
Date of service: Oct 15, 2025 Referring Physician Claudia Reason for Consultation Chest pain History of Present Illness This is a 75 year old male with a PMH of HTN, HLD, Alzheimer's disease, GERD who presents to the ED via EMS with a complaint of chest pain onset 8 weeks. Per EMS, patient has been experiencing intermittent, left-sided chest pain, noticed pain began after getting Pacemaker placed, at [facility]. Patient states pain is 8/10, causes associated symptoms of dizziness, shortness of breath. Prior to EMS arrival, patient took Nitro around 17:00, was given Aspirin 324 mg by EMS in route to ED, currently pain has improved. TROP 11 >14. Chest x- ray shows mild pulmonary vascular congestion and interstitial edema and mild cardiomegaly. EKG is NSR at 56. Patient was admitted to the hospital. I am asked to consult on this patient. Family History: Patient reports no known family medical history. Allergies: Coded Allergies: NO KNOWN ALLERGIES (Unverified , 07/07/25) Home Meds Active Scripts Meclizine Hcl (Meclizine Hcl) 25 Mg Tab, 12.5 MG PO [id number] PRN for 30 Days, #30 TAB Prov:CHAITANYA BLOOM RESIDENT 07/10/25 Ergocalciferol (Vitamin D (Ergocalciferol) 50,000 Unit Cap, 52809 UNIT PO QWEEKLY for 60 Days, #10 CAP Prov:CHAITANYA BLOOM RESIDENT 07/10/25 Atorvastatin Calcium (ATORVASTATIN CALCIUM) 20 Mg Tab, 1 TAB PO HS for 30 Days, #30 TAB 5 Refills Prov:CHAITANYA BLOOM RESIDENT 07/10/25 Acetaminophen (Tylenol) 650 Mg Rc, 650 MG PO Q6HPRN PRN for 15 Days, #120 TAB Prov:CHAITANYA BLOOM RESIDENT 07/10/25 Current Medications Current Medications Medications (Trade) Dose Ordered Sig/Lonnie Route PRN Reason Start Time Stop Time Status Last Admin Acetaminophen/ Hydrocodone Bitart ([place] 5/325MG Tab) 1 tab Q4HP PRN PO MODERATE PAIN (4-6 PAIN SCALE) 10/15/25 22:00 Ondansetron HCl (Zofran) 4 mg Q4HP PRN IV NAUSEA / VOMITING 10/15/25 22:00 Docusate Sodium (Colace Capsule) 100 mg BIDPRN PRN PO FOR CONSTIPATION 10/15/25 22:00 Acetaminophen (Tylenol Tablet) 650 mg Q6HP PRN PO PAIN SCALE 1-3 OR TEMP>100.4 10/15/25 22:00 Morphine Sulfate 2 mg Q4HPRN PRN IV SEVERE PAIN (7-10 PAIN SCALE) 10/15/25 22:00 Enoxaparin Sodium (Lovenox) 40 mg DAILY SC 10/15/25 22:00 Nitroglycerin (Ntrostat Sublingual) 0.4 mg Q5MINP PRN SL FOR CHEST PAIN 10/15/25 22:00 10/15/25 22:38 Morphine Sulfate 2 mg Q30M PRN IV FOR CHEST PAIN 10/15/25 22:00 Review of Systems CONSTITUTIONAL: Denies acute: fever, diaphoresis, chills, generalized weakness. HEAD: Denies acute: headache, photophobia Eyes: Denies acute: Double vision, vision loss, eye pain, eye discharge. EARS: Denies acute: tinnitus, hearing loss, ear discharge, ear pain, THROAT: Denies acute: sore throat, swelling, difficulty swallowing , pain with swallowing, change in voice. NECK: Denies acute: neck pain, neck swelling, stiff neck. HEART: Denies acute : palpitations, LUNGS: Denies acute: SOB, wheezing, cough, hemoptysis ABDOMEN: Denies acute: abdominal pain, Nausea, Vomiting, diarrhea, melena , hematemesis, hematochezia SKIN: Denies acute: rash, redness, lesions, itchiness. EXTREMITIES: Denies acute: calf pain, numbness, tingling, weakness, denies pain in extremity. Denies acute: Low back pain. Neuro: Denies acute: focal neurological deficit, motor or sensory focal neurological deficit, tremors, seizure like activity, confusion, dizziness, change in mental status, loss of bowel or bladder function, cauda equina like symptoms. : Denies acute: dysuria, hematuria, flank pain, increase in urinary frequency. PSYCH: Denies acute: hallucination, suicidal ideation, homicidal ideation. Vital Signs Vital Signs Date Time Temp Pulse Resp B/P (MAP) Pulse Ox O2 Delivery O2 Flow Rate FiO2 10/15/25 22:38 143/81 10/15/25 22:00 58 14 97 10/15/25 19:30 Room Air* 0 21 10/15/25 18:02 98.3 98.3 Physical Exam GENERAL: Alert and oriented x 3. No acute distress. EYES: PERRL, EOMI. Anicteric. HENT: Moist mucous membranes. LUNGS: Clear to auscultation bilaterally. CARDIOVASCULAR: Regular rate and rhythm. ABDOMEN: Soft, nontender and nondistended. EXTREMITIES: No edema. NEUROLOGIC: No focal neurological deficits. SKIN: Warm, dry. Labs/Diagnostic Data Labs Test 10/15/25 19:39 10/15/25 18:39 Range/Units Troponin I High Sensitivity 14 </=54 ng/L White Blood Count 4.8 4.4-10.8 10^3/uL Red Blood Count 4.08 L 4.5-5.90 10^6/uL Hemoglobin 12.7 L 13.5-17.5 g/dL Hematocrit 37.5 L 41.0-53.0 % Mean Corpuscular Volume 92.0 80.0-100.0 fL Mean Corpuscular Hemoglobin 31.1 28.0-32.0 pg Mean Corpuscular Hemoglobin Concent 33.9 32.0-36.0 g/dL Red Cell Distribution Width 15.3 H 11.8-14.3 % Platelet Count 230 140-450 10^3/uL Mean Platelet Volume 7.6 6.9-10.8 fL Neutrophils (%) (Auto) 43.2 37.0-80.0 % Lymphocytes (%) (Auto) 38.9 10.0-50.0 % Monocytes (%) (Auto) 15.9 H 0.0-12.0 % Eosinophils (%) (Auto) 1.2 0.0-7.0 % Basophils (%) (Auto) 0.8 0.0-2.0 % Neutrophils # (Auto) 2.1 1.6-8.6 10 ^3/uL Lymphocytes # (Auto) 1.9 0.4-5.4 10 ^3/uL Monocytes # (Auto) 0.8 0-1.3 10 ^3/uL Eosinophils # (Auto) 0.1 0-0.8 10 ^3/uL Basophils # (Auto) 0 0-0.2 10 ^3/uL Nucleated Red Blood Cells 0.1 % Sodium Level 137 136-145 mmol/L Potassium Level 3.8 3.5-5.1 mmol/L Chloride Level 101 98-107 mmol/L Carbon Dioxide Level 27 20-31 mmol/L Anion Gap 9 5-15 Blood Urea Nitrogen 7 L 9-23 mg/dL Creatinine 1.02 0.700-1.30 mg/dL Glomerular Filtration Rate Calc 76 >90 mL/min BUN/Creatinine Ratio 6.9 L 10.0-20.0 Serum Glucose 96 74-106 mg/dL Calcium Level 9.3 8.7-10.4 mg/dL Total Bilirubin 0.3 0.2-1.0 mg/dL Aspartate Amino Transferase (AST) 16 13-40 U/L Alanine Aminotransferase (ALT) 10 7-40 U/L Alkaline Phosphatase 105 46-116 U/L B-Type Natriuretic Peptide 46.34 0-100 pg/mL Total Protein 7.6 5.7-8.2 g/dL Albumin 4.5 3.2-4.8 g/dL Assessment Chest pain. Pacemaker complications. Plan/Recommendation I agree with your ongoing assessment and care of plan. Morphine and [place] for pain management. DVT prophylactics. Nitro SL. Additional plan as per the hospital course. A total of 45 minutes was spent reviewing the patient record, examining the patient, making a diagnostic and therapeutic plan, discussing this plan with medical personnel, following up on diagnostic studies and following the patient for clinical stability excluding any and all procedures. At least 50% of this time was spent in direct, [id number] contact. Plan discussed with: Patient TEMITOPEJESSICA Rowe MD Oct 15, 2025 22:41
[2025-10-16 00:42] VITALS: PULSE 73; RESP 18; O2SAT 96
[2025-10-16 01:00] VITALS: BP 120/73; PULSE 64; RESP 18; TEMP 97.8; O2SAT 95
[2025-10-16 05:00] VITALS: BP 126/67; PULSE 55; RESP 16; TEMP 97.9; O2SAT 97
[2025-10-16 05:19] LABS: Hematocrit 35.5 % (41.0-53.0); Hemoglobin 12.0 g/dL (13.5-17.5); Mean Corpuscular Hemoglobin 31.0 pg (28.0-32.0); Mean Corpuscular Volume 91.5 fL (80.0-100.0)
[2025-10-16 05:39] LABS: Alanine Aminotransferase 11 U/L (7-40); Alkaline Phosphatase 94 U/L (46-116); Calcium 9.5 mg/dL (8.7-10.4)
[2025-10-16 05:40] LABS: Albumin 4.4 g/dL (3.2-4.8); Anion Gap 10 (5-15); BUN/Creatinine Ratio 6.7 (10.0-20.0); Bilirubin, Total 0.3 mg/dL (0.2-1.0); Blood Urea Nitrogen 7 mg/dL (9-23); Carbon Dioxide 24 mmol/L (20-31); Chloride 106 mmol/L (98-107); Glucose 87 mg/dL (74-106); Potassium 3.7 mmol/L (3.5-5.1); Sodium 140 mmol/L (136-145); Total Protein 7.1 g/dL (5.7-8.2)
[2025-10-16 05:54] LABS: Smudge Cells 2 /100 WBC; Total Cells Counted 100.0 (100)
[2025-10-16] MEDS: MECLIZINE HCL 25 MG TAB PO PRN (08:27)
[2025-10-16 09:00] VITALS: BP 130/73; PULSE 59; RESP 18; TEMP 98.1; O2SAT 96
[2025-10-16] MEDS: ACETAMINOPHEN 325 MG TAB PO PRN (10:02)
--- NOTE | 2025-10-16 18:15 | DVHPN2 ---
Progress Note - Dictate Date Seen: Oct 16, 2025 Medical Necessity Reason Pt with a Central, PICC or Fol: No Subjective Patient was seen and evaluated in follow up. Patient has no new complaints at this time. Patient denies any cardiac symptoms. Patient is cardiac stable for discharge. vital signs Vital Sign Date Time Temp Pulse Resp B/P (MAP) Pulse Ox O2 Delivery O2 Flow Rate FiO2 10/16/25 09:00 98.1 59 18 130/73 (92) 96 98.1 10/16/25 00:42 Room Air* 0 21 Total Intake and Output 10/15/25 10/15/25 10/16/25 15:00 23:00 07:00 Intake Total 120 ml Balance 120 ml objective GENERAL: Alert and oriented x 3. No acute distress. EYES: PERRL, EOMI. Anicteric. HENT: Moist mucous membranes. LUNGS: Clear to auscultation bilaterally. CARDIOVASCULAR: Regular rate and rhythm. ABDOMEN: Soft, nontender and nondistended. EXTREMITIES: No edema. NEUROLOGIC: No focal neurological deficits. SKIN: Warm, dry. laboratory and microbiology Laboratory Tests 10/16/25 04:26 Test 10/16/25 04:26 Range/Units Serum Glucose 87 74-106 mg/dL Problem List Chest pain. Pacemaker complications. Assessment/Plan Continued all current supportive medical care. Morphine and [place] for pain management. DVT prophylactics. Nitro SL. Additional plan as per the hospital course. Plan discussed with: Patient JESSICA LINN MD Oct 16, 2025 18:15
[2025-10-16] MEDS ORDERED: AZIT500T66 PO (21:21)
[2025-10-16] MEDS ORDERED: HYDR-4902 PO (21:21)
--- NOTE | 2025-10-18 20:00 | ECG ---
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
--- NOTE | 2025-10-31 19:27 | DVHDS2 ---
Discharge Summary Date of Admission Oct 15, 2025 at 21:56 Date of Discharge: Oct 16, 2025 Labs/Diagnostic Data: Laboratory Results Test 10/16/25 04:26 10/15/25 23:05 10/15/25 18:39 White Blood Count 4.8 10^3/uL (4.4-10.8) Red Blood Count 3.88 10^6/uL (4.5-5.90) Hemoglobin 12.0 g/dL (13.5-17.5) Hematocrit 35.5 % (41.0-53.0) Mean Corpuscular Volume 91.5 fL (80.0-100.0) Mean Corpuscular Hemoglobin 31.0 pg (28.0-32.0) Mean Corpuscular Hemoglobin Concent 33.8 g/dL (32.0-36.0) Red Cell Distribution Width 15.0 % (11.8-14.3) Platelet Count 199 10^3/uL (140-450) Mean Platelet Volume 8.0 fL (6.9-10.8) Neutrophils (%) (Auto) % (37.0-80.0) Lymphocytes (%) (Auto) % (10.0-50.0) Monocytes (%) (Auto) % (0.0-12.0) Basophils (%) (Auto) % (0.0-2.0) Neutrophils # (Auto) 10 ^3/uL (1.6-8.6) Lymphocytes # (Auto) 10 ^3/uL (0.4-5.4) Monocytes # (Auto) 10 ^3/uL (0-1.3) Differential Total Cells Counted 100.0 (100) Neutrophils % (Manual) 64 (37.0-80.0) Band Neutrophils % (Manual) 0 Lymphocytes % (Manual) 21 (10.0-50.0) Monocytes % (Manual) 13 (0-12) Eosinophils % (Manual) 1 (0-7) Basophils % (Manual) 0 (0.0-2.0) Metamyelocytes % (manual) 0 Myelocytes % (Manual) 0 Promyelocytes % (Manual) 0 Blast Cells % (Manual) 1 Reactive Lymphocytes 0 Smudge Cells 2 /100 WBC Platelet Estimate Adequate Sodium Level 140 mmol/L (136-145) Potassium Level 3.7 mmol/L (3.5-5.1) Chloride Level 106 mmol/L (98-107) Carbon Dioxide Level 24 mmol/L (20-31) Anion Gap 10 (5-15) Blood Urea Nitrogen 7 mg/dL (9-23) Creatinine 1.05 mg/dL (0.700-1.30) Glomerular Filtration Rate Calc 73 mL/min (>90) BUN/Creatinine Ratio 6.7 (10.0-20.0) Serum Glucose 87 mg/dL (74-106) Calcium Level 9.5 mg/dL (8.7-10.4) Total Bilirubin 0.3 mg/dL (0.2-1.0) Aspartate Amino Transferase (AST) 16 U/L (13-40) Alanine Aminotransferase (ALT) 11 U/L (7-40) Alkaline Phosphatase 94 U/L (46-116) Total Protein 7.1 g/dL (5.7-8.2) Albumin 4.4 g/dL (3.2-4.8) Troponin I High Sensitivity 13 ng/L (</=54) Eosinophils (%) (Auto) 1.2 % (0.0-7.0) Eosinophils # (Auto) 0.1 10 ^3/uL (0-0.8) Basophils # (Auto) 0 10 ^3/uL (0-0.2) Nucleated Red Blood Cells 0.1 % B-Type Natriuretic Peptide 46.34 pg/mL (0-100) Other Laboratory Tests 10/16/25 04:26 Brief Hx & Hospital Course: 75 year old male presents to the ED via EMS with a chief complaint of chest pain onset 8 weeks. Per EMS, patient has been experiencing intermittent, LT-sided chest pain, noticed pain began after getting Pacemaker placed, at [facility]. Patient states pain is 8/10, causes associated symptoms of dizziness, shortness of breath. Prior to EMS arrival, patient took Nitro around 17:00, was given Aspirin 324 mg by EMS in route to ED, currently pain has improved. Denies headache, dizziness, shortness of breath, nausea, vomiting, diarrhea, numbness/tingling, fever, chills. No other symptoms or modifying factors present at this time. chest pain ACS rule out Pacemaker complications discharged Condition at Discharge: Fair Final Diagnosis/Problems List chest pain Discharge Disposition: Home Discharge Instruct/Medications Scheduled Atorvastatin Calcium (Atorvastatin Calcium), 1 TAB PO HS Azithromycin (Azithromycin), 1 TAB PO DAILY Ergocalciferol (Vitamin D (Ergocalciferol), 50,000 UNIT PO QWEEKLY Scheduled PRN Acetaminophen (Tylenol), 650 MG PO Q6HPRN PRN Hydrocodone-Acetaminophen (Hydrocodone Bitartrate/AC 5-325 mg), 1 TAB PO Q6HP PRN Meclizine Hcl (Meclizine Hcl), 12.5 MG PO [id number] PRN Discharge Statement: "Patient was advised to return to the ER or call 911 if any headaches, dizziness, shortness of breath, chest pain, abdominal pain, bleeding, fevers, or worsening of medical condition. Patient was counseled about treatment plan, medications, possible side effects, patientverbalized understanding. All questions were answered to the best of my ability. This discharge took greater then 30 minutes in planning, reviewing documentation, counseling the patient, and discussing with other team members." ASSESSMENT ASSESSMENT Assessment CHALO NÚÑEZ DO Oct 31, 2025 19:27
== END 2025-10-16 12:39 | disposition home or self-care (01) | DRG 948 ==
LOC: ER 18:02 → EDBD 18:02 → OVERFLOW 21:56 → WEST WING 23:52
PROVIDERS: ADMIT Internal Medicine; ATTEND Internal Medicine
DX: G89.18 Other acute postprocedural pain (principal); T82.847A Pain due to cardiac prosthetic devices, implants and grafts, initial encounter; E11.9 Type 2 diabetes mellitus without complications; I10 Essential (primary) hypertension; G30.9 Alzheimer's disease, unspecified; E78.5 Hyperlipidemia, unspecified; K21.9 Gastro-esophageal reflux disease without esophagitis
CPT/HCPCS: 36415; 71045; 80053; 83880; 84484; 85007; 85025; 85027; 93005; G0378

== ENCOUNTER 2025-10-16 18:48 | Emergency (ER) | payer MEDICARE, MEDICAID ==
[~2025-10-16] VITALS: Ht 175.3 cm; Wt 78.0 kg
--- NOTE | 2025-10-16 19:03 | ECG ---
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
[2025-10-16 19:21] LABS: Hematocrit 36.8 % (41.0-53.0); Hemoglobin 12.4 g/dL (13.5-17.5); Mean Corpuscular Hemoglobin 31.1 pg (28.0-32.0); Mean Corpuscular Volume 92.5 fL (80.0-100.0); Nucleated Red Blood Cells % 0.0 %
[2025-10-16 19:26] LABS: Chloride 104 mmol/L (98-107); Potassium 3.9 mmol/L (3.5-5.1); Sodium 139 mmol/L (136-145)
[2025-10-16 19:27] LABS: Anion Gap 10 (5-15); Calcium 9.5 mg/dL (8.7-10.4); Carbon Dioxide 25 mmol/L (20-31)
[2025-10-16 19:32] LABS: BUN/Creatinine Ratio 8.5 (10.0-20.0)
[2025-10-16 19:35] LABS: Blood Urea Nitrogen 9 mg/dL (9-23); Glucose 142 mg/dL (74-106)
--- NOTE | 2025-10-16 20:06 | DVH ---
EXAM: XY CHEST PORTABLE CLINICAL HISTORY: CP TECHNIQUE: Single AP view of the chest WID: COMPARISON: XY CHEST PORTABLE on DOS: 10/15/25 FINDINGS: Lines and tubes: There is a left-sided dual lead pacemaker with lead tips projecting over the right atrium and right ventricle. Chest: The heart size and pulmonary vasculature is within normal limits. Calcified plaque projects Over the aortic arch. No pleural effusion or pneumothorax. There is a small mixed consolidation in the right lung base. Prominent calcified lymph node projects over the right mediastinum. Calcified granulomas are seen bilaterally. The osseous structures are grossly intact. IMPRESSION: 1. Small mixed consolidation in the right lung base which could be pneumonia or atelectasis.
[2025-10-16] MEDS ORDERED: HYDROcodone-ACET 10/325MG TAB PO ONE (20:15)
--- NOTE | 2025-10-16 20:25 | ED.PDOC ---
HPI Comments 75-year-old male who came to ER for chest pains. Patient has history of hypertension status post pacemaker insertion. Was discharged this morning at [facility], diagnosed with Chest pain.Pacemaker complicatio ns.Assessment/Plan Morphine and [place] for pain management and Nitro SL. [facility] he started having chest pains again. He was requesting the pain medications that was given to him at [facility] but the facility was not able to provide him with any Chief Complaint: Chest Pain Time Seen by MD: 20:25 Reviewed Notes: Nurses Notes Allergies: Coded Allergies: NO KNOWN ALLERGIES (Unverified , 07/07/25) Home Meds Active Scripts Hydrocodone-Acetaminophen (Hydrocodone Bitartrate/AC 5-325 mg) 1 Tab Tab, 1 TAB PO Q6HP PRN, #20 TAB Prov:NIR BARAHONA MD 10/16/25 Azithromycin (Azithromycin) 500 Mg Tab, 1 TAB PO DAILY for 5 Days, #5 TAB Prov:NIR BARAHONA MD 10/16/25 Meclizine Hcl (Meclizine Hcl) 25 Mg Tab, 12.5 MG PO [id number] PRN for 30 Days, #30 TAB Prov:CHAITANYA BLOOM RESIDENT 07/10/25 Ergocalciferol (Vitamin D (Ergocalciferol) 50,000 Unit Cap, 35154 UNIT PO QWEEKLY for 60 Days, #10 CAP Prov:CHAITANYA BLOOM RESIDENT 07/10/25 Atorvastatin Calcium (ATORVASTATIN CALCIUM) 20 Mg Tab, 1 TAB PO HS for 30 Days, #30 TAB 5 Refills Prov:CHAITANYA BLOOM 07/10/25 Acetaminophen (Tylenol) 650 Mg Rc, 650 MG PO Q6HPRN PRN for 15 Days, #120 TAB Prov:CHAITANYA BLOOM RESIDENT 07/10/25 Information Source: Patient Mode of Arrival: EMS Past Medical History PAST MEDICAL HISTORY: DM, GERD, High Lipids, HTN Surgical History: Pacemaker Family History Family History: Unknown Social History Smoker: Non-Smoker Alcohol: Denies ETOH Use Drugs: Denies Drug Use Lives In: Assisted Care Constitutional: denies: chills, diaphoresis, fatigue, fever, malaise, sweats, weakness, others EENTM: denies: blurred vision, double vision, ear bleeding, ear discharge, ear drainage, ear pain, ear ringing, eye pain, eye redness, hearing loss, mouth pain, mouth swelling, nasal discharge, nose bleeding, nose congestion, nose pain, photophobia, tearing, throat pain, throat swelling, voice changes, others Respiratory: denies: cough, hemoptysis, orthopnea, SOB at rest, shortness of breath, SOB with excertion, stridor, wheezing, others Cardiovascular: denies: chest pain, dizzy spells, diaphoresis, Dyspnea on exertion, edema, irregular heart beat, left arm pain, lightheadedness, palpitations, PND, syncope, others Gastrointestinal: denies: abdomen distended, abdominal pain, blood streaked bowels, constipated, diarrhea, dysphagia, difficulty swallowing, hematemesis, melena, nausea, poor appetite, poor fluid intake, rectal bleeding, rectal pain, vomiting, others Genitourinary: denies: burning, dysuria, flank pain, frequency, hematuria, incontinence, penile discharge, penile sore, pain, testicle pain, testicle swelling, urgency, others Neurological: denies: dizziness, fainting, headache, left sided numbness, left sided weakness, numbness, paresthesia, pre-existing deficit, right sided numbness, right sided weakness, seizure, speech problems, tingling, tremors, weakness, others Musculoskeletal: denies: back pain, gout, joint pain, joint swelling, muscle pain, muscle stiffness, neck pain, others Integumetry: denies: bruises, change in color, change in hair/nails, dryness, laceration, lesions, lumps, rash, wounds, others Allergic/Immunocompromised: denies: Difficulty Healing, Frequent Infections, Hives, Itching, others Hematologic/Lymphatic: denies: anemia, blood clots, easy bleeding, easy bruising, swollen glands, others Endocrine: denies: excessive hunger, excessive sweating, excessive thirst, excessive urination, flushing, intolerance to cold, intolerance to heat, unexplained weight gain, unexplained weight loss, others Psychiatric: denies: anxiety, bipolar disorder, depression, hopeless, panic disorder, schizophrenia, sleepless, suicidal, others Physical Exam General Appearance: No Apparent Distress, Normal HEENT: Normal ENT Inspection, Pharynx Normal, TMs Normal Neck: Full Range of Motion, Non-Tender, Normal, Normal Inspection Respiratory: Chest Non-Tender, Lungs Clear, No Accessory Muscle Use, No Respiratory Distress, Normal Breath Sounds Cardiovascular: No Edema, No JVD, No Murmur, No Gallop, Normal Peripheral Pulses, Regular Rate/Rhythm Breast Exam: Deferred Gastrointestinal: No Organomegaly, Non Tender, No Pulsatile Mass, Normal Bowel Sounds, Soft Genitalia: Deferred Pelvic: Deferred Rectal: Deferred Extremities: No calf tenderness, Normal capillary refill, Normal inspection, Normal range of motion, Non-tender, No pedal edema Musculoskeletal : Apperance: Normal Neurologic: Alert, e commerce developer II-XII nml as Tested, No Motor Deficits, Normal Affect, Normal Mood, No Sensory Deficits Cerebellar Function: Normal Reflexes: Normal Skin: Dry, Normal Color, Warm Lymphatic: No Adenopathy Was a procedure done? Was a procedure done?: No CP Differential Dx Differential Diagnosis: A-fib, A-Flutter, Angina, Heart Failure, MAT, VT, PAC's, Other Differential Diagnosis: Angina, Chest Wall Pain, Costochondritis, Esophageal reflux/spasm, Gastritis, Myocardial Infarction X-Ray, Labs, Meds, VS Vital Signs Date Time Temp Pulse Resp B/P (MAP) Pulse Ox O2 Delivery O2 Flow Rate FiO2 10/16/25 20:43 71 16 98 Room Air 10/16/25 20:43 97.5 71 16 122/76 (91) 98 97.5 10/16/25 19:03 98.2 94 15 141/77 99 98.2 10/16/25 18:49 94 Lab Test 10/16/25 19:49 10/16/25 18:57 Range/Units Troponin I High Sensitivity 17 15 </=54 ng/L White Blood Count 5.3 4.4-10.8 10^3/uL Red Blood Count 3.98 L 4.5-5.90 10^6/uL Hemoglobin 12.4 L 13.5-17.5 g/dL Hematocrit 36.8 L 41.0-53.0 % Mean Corpuscular Volume 92.5 80.0-100.0 fL Mean Corpuscular Hemoglobin 31.1 28.0-32.0 pg Mean Corpuscular Hemoglobin Concent 33.6 32.0-36.0 g/dL Red Cell Distribution Width 15.2 H 11.8-14.3 % Platelet Count 222 140-450 10^3/uL Mean Platelet Volume 7.9 6.9-10.8 fL Neutrophils (%) (Auto) 54.8 37.0-80.0 % Lymphocytes (%) (Auto) 27.1 10.0-50.0 % Monocytes (%) (Auto) 15.6 H 0.0-12.0 % Eosinophils (%) (Auto) 1.2 0.0-7.0 % Basophils (%) (Auto) 1.3 0.0-2.0 % Neutrophils # (Auto) 2.9 1.6-8.6 10 ^3/uL Lymphocytes # (Auto) 1.4 0.4-5.4 10 ^3/uL Monocytes # (Auto) 0.8 0-1.3 10 ^3/uL Eosinophils # (Auto) 0.1 0-0.8 10 ^3/uL Basophils # (Auto) 0.1 0-0.2 10 ^3/uL Nucleated Red Blood Cells 0.0 % Sodium Level 139 136-145 mmol/L Potassium Level 3.9 3.5-5.1 mmol/L Chloride Level 104 98-107 mmol/L Carbon Dioxide Level 25 20-31 mmol/L Anion Gap 10 5-15 Blood Urea Nitrogen 9 9-23 mg/dL Creatinine 1.06 0.700-1.30 mg/dL Glomerular Filtration Rate Calc 72 >90 mL/min BUN/Creatinine Ratio 8.5 L 10.0-20.0 Serum Glucose 142 H 74-106 mg/dL Calcium Level 9.5 8.7-10.4 mg/dL Current Medications Medications (Trade) Dose Ordered Sig/Lonnie Route Start Time Stop Time Status Last Admin Acetaminophen/ Hydrocodone Bitart ([place] 10/325MG Tab) 1 tab ONCE ONCE PO 10/16/25 21:00 10/16/25 21:01 DC 10/16/25 21:06 Azithromycin (Zithromax Tablet) 500 mg ONCE ONCE PO 10/16/25 21:30 10/16/25 21:31 DC 10/16/25 21:54 Time of 1ST Reevaluation: 20:22 Reevaluation 1ST: Unchanged Patient Education/Counseling: Diagnosis, Treatment Family Education/Counseling: No Family Present SEPSIS Sepsis Screen Date sepsis recognized/suspect: Oct 16, 2025 Time Sepsis recognized/suspect: 1849 Recent Procedure: No On Antibiotic Therapy: No Respiratory Rate >20: No Heart Rate >90: No Temp<36 C (96.8 F) or >38.3 C: No SBP <90 or MAP <65 mmHG: No New Acute Mental Status Change: No Is the patient on CPAP, BIPAP,: No Physician Orders Electrocardigram (10/16/25 19:56) Electrocardigram (10/16/25 21:56) Chest Portable (10/16/25 18:59) Vital Signs Date Time Temp Pulse Resp B/P (MAP) Pulse Ox O2 Delivery O2 Flow Rate FiO2 10/16/25 20:43 71 16 98 Room Air 10/16/25 20:43 97.5 71 16 122/76 (91) 98 97.5 10/16/25 19:03 98.2 94 15 141/77 99 98.2 10/16/25 18:49 94 Laboratory Tests Test 10/16/25 18:57 White Blood Count 5.3 10^3/uL (4.4-10.8) Medications Medications Dose Ordered Sig/Lonnie Route Start Time Stop Time Status Last Admin Dose Admin Acetaminophen/ Hydrocodone Bitart 1 tab ONCE ONCE PO 10/16/25 21:00 10/16/25 21:01 DC 10/16/25 21:06 Azithromycin 500 mg ONCE ONCE PO 10/16/25 21:30 10/16/25 21:31 DC 10/16/25 21:54 Departure 1 Departure Time of Disposition: 22:00 Impression: Primary Impression: Acute chest pain Disposition: 01 HOME / SELF CARE / HOMELESS Condition: Stable e-Prescriptions Hydrocodone-Acetaminophen (Hydrocodone Bitartrate/AC 5-325 mg) 1 Tab Tab 1 TAB PO Q6HP PRN, #20 TAB Prov: NIR BARAHONA MD 10/16/25 Azithromycin (Azithromycin) 500 Mg Tab 1 TAB PO DAILY for 5 Days, #5 TAB Prov: NIR BARAHONA MD 10/16/25 Discharged With: Self Critical Care Note Critical Care Time?: No Stability Stability form required: No Heart Score Heart Score: Heart Score Response (Comments) Value History Moderate Suspicious 1 EKG Normal 0 Age >65 2 Risk Factors 1 or 2 risk factors 1 Troponin Normal limit 0 Total 4 I personally scribed for NIR BARAHONA MD ([email or web address]) on 10/16/25 at 20:25. Electronically submitted by Izaiah Davis ([email or web address]). NIR BRAAHONA MD Oct 16, 2025 20:25
[2025-10-16 20:43] VITALS: BP 122/76; PULSE 71; RESP 16; TEMP 97.5; O2SAT 98
[2025-10-16] MEDS: HYDROcodone-ACET 10/325MG TAB PO ONE (21:06)
[2025-10-16] MEDS ORDERED: HYDR-4902 PO (21:21)
[2025-10-16] MEDS ORDERED: AZIT500T66 PO (21:21)
[2025-10-16] MEDS: AZITHROMYCIN 250 MG TAB PO ONE (21:54)
== END 2025-10-16 22:38 | disposition home or self-care (01) ==
LOC: ER 18:48 → EDBD 18:48 → ER 22:38
DX: R07.89 Other chest pain (principal); E11.9 Type 2 diabetes mellitus without complications; I10 Essential (primary) hypertension; Z95.0 Presence of cardiac pacemaker; Z79.899 Other long term (current) drug therapy
CPT/HCPCS: 36415; 71045; 80048; 84484; 85025; 93005